=== PATIENT | female | born 1965 | race Two or more races ===

== ENCOUNTER 2017-10-28 11:27 | Emergency (ER) | payer SELFPAY ==
[2017-10-21 13:57] VITALS: BMI 33.6
[~2017-10-28 11:27] MED LIST: ACET-3017 PO; ALB17R INH; ALB6.7R INH; ALE70 PO; ALP5 PO; AMI10 PO; AMIT-106 PO; ATOR10TA24 PO; AZIT500T47 PO; BACDS PO; CALC-515 PO; CALC-778 PO; CALC1TAB32 PO; CEP500 PO; CEPH250C37 PO; CEPH500C24 PO; CEPH500T7 PO; CIP500 PO; CITA-139 PO; CITA-141 PO; CLI150 PO; CLIN-1 PO; CLIN-75 PO; CLIN150C15; CLIN300C99 PO; CYA1000 PO; CYAN500T38 PO; CYAN50TA3 PO; CYC10 PO; CYCL10TA29 PO; CYCL15CA18 PO; DAR100 PO; DOC100 PO; DOXY-179 PO; ESC10 PO; EZE10 PO; FISH OIL1 CAP PO; FLU150 PO; FLUT100D INH; GAB100 PO; GABA-547 PO; GEMF600T89 PO; GLY5 PO; HYDR-1 PO; HYDR-317 PO; HYDR-3250 PO; HYDR-385 PO; HYDR-4305 PO; HYDR-4309 PO; HYDR1TAB; HYDR20TA17 PO; IBAN2.5T2 PO; IBU800 PO; IBUP800T37 PO; INSU100C10 SQ; KET10; LACT10SO82 PO; LEVI SUBQ; LEVO50 PO; LEVO50TA89 PO; LEVO75TA73 PO; LOR5 PO; LOR5/325 PO; MECL-111 PO; MECL-205 PO; MECL-81 PO; MECL25TA27 PO; MECLAZINE; MELO-149 PO; MELO-205 PO; MET500 PO; METF-1 PO; METF-420 PO; MIR PO; MULT-1379 PO; NIC10R INH; NIT100 PO; OMEG-11 PO; OMEP-125 PO; ONDA4TAB PO; ONDA4TAB97 PO; OXYC5TAB38 PO; OXYG1EAC MC; PER PO; PHENA100 PO; PHENA200 PO; PRA20 PO; PRAV40TA77 PO; PRED20TA6 PO; PROM-110 PO; SIMV-49 PO; SIMV-54 PO; SPIR25TA78 PO; SPIR50TA31 PO; SULF-198 PO; TRAM-420 PO; VARE1TAB4 PO; VIT B 12 SC; [UNRECOGNIZED DRUG - CODE] PO; [UNRECOGNIZED DRUG - CODE] PO
--- NOTE | 2017-10-28 11:59 | EKG ---
FACILITY: [facility] - [place] PATIENT NAME: LEW TUCKER : [id number] MR: [id number] V: [id number] EXAM DATE: ORDERING PHYSICIAN: HOLLI BUSTAMANTE TECHNOLOGIST: SETH Omalley Reason : RESPIRATORY Blood Pressure : / mmHG Vent. Rate : 065 BPM Atrial Rate : 065 BPM P-R Int : 106 ms QRS Dur : 082 ms QT Int : 474 ms P-R-T Axes : -15 088 140 degrees QTc Int : 492 ms Sinus rhythm with short MT Low voltage QRS ST and T wave abnormality, consider lateral ischemia Prolonged QT Abnormal ECG When compared with ECG of 20-OCT-2017 12:37, No significant change was found Confirmed by JULIO REESE ([id number]) on 10/29/2017 1:26:22 AM Referred By: DIANNA Confirmed By:JULIO REESE
[2017-10-28 12:18] LABS: PLATELET COUNT, AUTOMATED 245 K/uL (150-450)
[2017-10-28 12:27] LABS: INR 1.17
--- NOTE | 2017-10-28 12:45 | RADIOLOGY IMAGING REPORT ---
FACILITY: [facility] - [place] PATIENT NAME: Gricelda Victor : 1965 MR: [id number] V: [id number] EXAM DATE: ORDERING PHYSICIAN: HOLLI BUSTAMANTE TECHNOLOGIST: Location: [facility] - [place] Patient: Gricelda Victor : 1965 Visit/Account:[id number] Date of Sevice: 10/28/2017 Examination: CHEST PA AND LAT Comparison: 10/22/2017 and earlier History: Respiratory distress. Findings: Increased size of the large right pleural effusion with associated right mid and lower lung volume loss versus consolidation. The left lung is clear. No pneumothorax. Visualized cardiac and le ft hilar contour is within normal limits. IMPRESSION: 1. Increased large right pleural effusion with associated right lung volume loss versus consolidation . 2. Clear left lung. Report Dictated By: Leonel Christianson MD at 10/28/2017 12:40 PM Report E-Signed By: Leonel Christianson MD at 10/28/2017 12:41 PM WSN:[id number]
--- NOTE | 2017-10-28 12:52 | ER Report ---
History and Physical Time Seen By MD: 11:30 Hx. of Stated Complaint: PATIENT STATES THAT IT HAS BEEN HARD TO BREATH SINCE THE October AND THAT TODAY HAS BEEN WORSE AND HARD TO BREATH HPI/ROS CHIEF COMPLAINT: Shortness of breath HISTORY OF PRESENT ILLNESS: She is a 52-year-old female who presents the ED with complaint of shortness of breath that started this morning. She states that she feels like her chest is being squeezed currently. Patient denies any fever cough. She states that she was recently hospitalized and was discharged on 10/22/2017. She states that she had her lung drained of fluid. She states that she did feel better but has been on oxygen since. She states that she is on 2-3 L of oxygen during the day and is on her CPAP machine at night. Patient states that she feels like she needs her CPAP during the day as well. She denies any palpitations. She has not noted any nausea or vomiting. She states that she is not having any abdominal pain. She recently was diagnosed with cirrhosis but to 3 months ago. She states that she is uncertain of what the underlying causes. She denies any alcohol use. REVIEW OF SYSTEMS: Constitutional: No fever, no chills. Eyes: No discharge. ENT: No sore throat. Cardiovascular: See history of present illness. Respiratory: See History of present illness. Gastrointestinal: See history of present illness. Genitourinary: No hematuria. Musculoskeletal: No back pain. Skin: No rashes. Neurological: No headache. Allergies: Coded Allergies: Penicillins (Verified Allergy, Intermediate, ITCHING, 10/20/17) levofloxacin (Verified Allergy, Intermediate, HIVES, 10/20/17) Home Meds Reported Medications Spironolactone (SPIRONOLACTONE) 25 Mg Tablet, 50 MG PO QDAY, TAB 10/20/17 Calcium Carb & Cit/Vitamin D3 (CALCIUM + D3 ER TABLET) 1 Each Tablet.er, 1 EACH PO QDAY 10/20/17 Cyanocobalamin (Vitamin B-12) (VITAMIN B-12) 1,000 Mcg Tablet, 1000 MCG PO QDAY 10/20/17 Insulin Detemir (LEVEMIR) 100 Unit/Ml Injs, 10 UNIT SUBQ QHS 09/15/17 Levothyroxine Sodium (LEVOTHYROXINE SODIUM) 75 Mcg Tablet, 75 MCG PO QDAY, TAB 12/27/15 Amitriptyline Hcl (AMITRIPTYLINE HCL) 25 Mg Tablet, 25 MG PO QHS, #5 TAB 05/23/15 Albuterol (Proventil Inhaler) 17 Gm Inh, 1 PUFF INH BID Y, 0 Refills 1-2 PUFFS 02/02/11 Discontinued Reported Medications Citalopram Hydrobromide (CITALOPRAM HBR) Unknown Strength Tablet, PO QDAY, TAB 09/15/17 Cyclobenzaprine Hcl (CYCLOBENZAPRINE HCL) 10 Mg Tablet, 10 MG PO TID Y for PAIN , TAB 09/15/17 Simvastatin (SIMVASTATIN) 20 Mg Tablet, 1 TAB PO HS, TAB 08/10/16 Discontinued Scripts Metformin Hcl (METFORMIN HCL) 1,000 Mg Tablet, 1 TAB PO BID, #60 TAB 5 Refills Prov:MONICA WASHBURN MD 09/15/17 Omeprazole (OMEPRAZOLE) 20 Mg Capsule.dr, 1 CAP PO QDAY, #30 CAP 6 Refills Prov:MONICA WASHBURN MD 09/15/17 Tramadol Hcl (TRAMADOL HCL) 50 Mg Tablet, 1-2 TAB PO Q4H Y for PAIN, #30 TAB 0 Refills Prov:OSCAR LAM MD 07/01/17 Reviewed Nurses Notes: Yes Old Medical Records Reviewed: Yes Hx Smoking: Yes (1 pack every 4-5 days 25 YRS) Smoking Status: Current: Every Day Smoker Exposure to Second Hand Smoke?: Yes Hx Substance Use Disorder: No Hx Alcohol Use: No Constitutional Vital Sign - Last 24 Hours 10/28/17 10/28/17 10/28/17 10/28/17 11:36 11:36 11:36 11:57 Temp 98.2 Pulse 65 63 Resp 17 B/P (MAP) 121/86 121/86 (98) Pulse Ox 94 92 O2 Delivery Nasal Cannula Nasal Cannula O2 Flow Rate 1.0 1 10/28/17 10/28/17 10/28/17 10/28/17 12:00 12:27 12:30 12:57 Pulse 65 63 Resp 18 21 B/P (MAP) 115/90 (98) 113/80 (91) Pulse Ox 93 96 O2 Delivery Nasal Cannula Nasal Cannula O2 Flow Rate 1 1 10/28/17 10/28/17 10/28/17 10/28/17 13:00 13:05 13:11 13:16 Pulse 64 62 Resp 25 11 B/P (MAP) 113/80 (91) 112/98 (103) Pulse Ox 95 O2 Delivery Nasal Cannula O2 Flow Rate 1 10/28/17 10/28/17 10/28/17 10/28/17 13:30 13:46 14:00 14:05 Pulse 66 67 Resp 22 18 B/P (MAP) 117/91 (100) 128/83 (98) Pulse Ox 93 93 O2 Delivery Nasal Cannula O2 Flow Rate 1 10/28/17 10/28/17 10/28/17 10/28/17 14:15 14:20 14:30 14:45 Pulse 67 Resp 27 B/P (MAP) 135/90 (105) 118/90 (99) 104/83 (90) Pulse Ox 91 10/28/17 10/28/17 14:55 15:00 Pulse 79 Resp 31 B/P (MAP) 110/75 (87) Pulse Ox 87 Physical Exam General Appearance: The patient is alert, has no immediate need for airway protection and no signs of toxicity. She appears to be in some mild distress. Eyes: Pupils equal and round no pallor or injection. ENT, Mouth: Mucous membranes are moist. Respiratory: There are no retractions. Decreased breath sounds on the right lung particularly in the base. Cardiovascular: Regular rate and rhythm. Gastrointestinal: Abdomen is soft and non tender, no masses, bowel sounds normal. Skin: Warm and dry, no rashes. Musculoskeletal: Neck is supple non tender. Extremities are nontender, nonswollen and have full range of motion. DIFFERENTIAL DIAGNOSIS: After history and physical exam differential diagnosis was considered for shortness of breath including but not limited to pulmonary infectious process, COPD, asthma, pulmonary embolus and congestive heart failure. Medical Decision Making Data Points Result Diagram: 10/28/17 1209 10/28/17 1209 Laboratory Hematology Test 10/28/17 12:09 Red Blood Count 4.90 M/uL (4.17-5.56) Mean Corpuscular Volume 89.3 fL (80.0-96.0) Mean Corpuscular Hemoglobin 30.2 pg (26.0-33.0) Mean Corpuscular Hemoglobin Concent 33.8 g/dL (32.0-36.0) Red Cell Distribution Width 13.9 % (11.5-14.5) Mean Platelet Volume 8.4 fL (7.2-11.1) Neutrophils (%) (Auto) 47.3 % (39.4-72.5) Lymphocytes (%) (Auto) 40.0 % (17.6-49.6) Monocytes (%) (Auto) 3.5 % (4.1-12.4) Eosinophils (%) (Auto) 8.7 % (0.4-6.7) Basophils (%) (Auto) 0.5 % (0.3-1.4) Nucleated RBC Relative Count (auto) 0.0 /100WBC Neutrophils # (Auto) 4.2 K/uL (2.0-7.4) Lymphocytes # (Auto) 3.5 K/uL (1.3-3.6) Monocytes # (Auto) 0.3 K/uL (0.3-1.0) Eosinophils # (Auto) 0.8 K/uL (0.0-0.5) Basophils # (Auto) 0.0 K/uL (0.0-0.1) Nucleated RBC Absolute Count (auto) 0.00 K/uL Peripheral Blood Smear No Y/N Prothrombin Time 15.0 seconds (12.0-14.4) Prothromb Time International Ratio 1.17 Activated Partial Thromboplast Time 41 seconds (23-35) Sodium Level 140 mmol/L (137-145) Potassium Level 3.9 mmol/L (3.5-5.0) Chloride Level 97 mmol/L (98-107) Carbon Dioxide Level 27 mmol/L (22-31) Blood Urea Nitrogen 12 mg/dl (7-18) Creatinine 1.10 mg/dl (0.52-1.04) Glomerular Filtration Rate Calc 52.4 Random Glucose 178 mg/dl (75-110) Calcium Level 9.9 mg/dl (8.4-10.2) Total Bilirubin 1.1 mg/dl (0.2-1.3) Aspartate Amino Transf (AST/SGOT) 71 U/L (0-35) Alanine Aminotransferase (ALT/SGPT) 75 U/L (0-56) Alkaline Phosphatase 156 U/L (0-126) Troponin I < 0.012 ng/ml B-Type Natriuretic Peptide 23 pg/ml (0-100) Total Protein 8.5 gm/dl (6.3-8.2) Albumin 4.5 g/dl (3.5-5.0) Chemistry Test 10/28/17 12:09 White Blood Count 8.8 k/uL (4.5-11.0) Red Blood Count 4.90 M/uL (4.17-5.56) Hemoglobin 14.8 g/dL (12.0-16.0) Hematocrit 43.8 % (34.0-47.0) Mean Corpuscular Volume 89.3 fL (80.0-96.0) Mean Corpuscular Hemoglobin 30.2 pg (26.0-33.0) Mean Corpuscular Hemoglobin Concent 33.8 g/dL (32.0-36.0) Red Cell Distribution Width 13.9 % (11.5-14.5) Platelet Count 245 K/uL (150-450) Mean Platelet Volume 8.4 fL (7.2-11.1) Neutrophils (%) (Auto) 47.3 % (39.4-72.5) Lymphocytes (%) (Auto) 40.0 % (17.6-49.6) Monocytes (%) (Auto) 3.5 % (4.1-12.4) Eosinophils (%) (Auto) 8.7 % (0.4-6.7) Basophils (%) (Auto) 0.5 % (0.3-1.4) Nucleated RBC Relative Count (auto) 0.0 /100WBC Neutrophils # (Auto) 4.2 K/uL (2.0-7.4) Lymphocytes # (Auto) 3.5 K/uL (1.3-3.6) Monocytes # (Auto) 0.3 K/uL (0.3-1.0) Eosinophils # (Auto) 0.8 K/uL (0.0-0.5) Basophils # (Auto) 0.0 K/uL (0.0-0.1) Nucleated RBC Absolute Count (auto) 0.00 K/uL Peripheral Blood Smear No Y/N Prothrombin Time 15.0 seconds (12.0-14.4) Prothromb Time International Ratio 1.17 Activated Partial Thromboplast Time 41 seconds (23-35) Glomerular Filtration Rate Calc 52.4 Calcium Level 9.9 mg/dl (8.4-10.2) Total Bilirubin 1.1 mg/dl (0.2-1.3) Aspartate Amino Transf (AST/SGOT) 71 U/L (0-35) Alanine Aminotransferase (ALT/SGPT) 75 U/L (0-56) Alkaline Phosphatase 156 U/L (0-126) Troponin I < 0.012 ng/ml B-Type Natriuretic Peptide 23 pg/ml (0-100) Total Protein 8.5 gm/dl (6.3-8.2) Albumin 4.5 g/dl (3.5-5.0) Coagulation Test 10/28/17 12:09 Prothrombin Time 15.0 seconds Prothromb Time International Ratio 1.17 Activated Partial Thromboplast Time 41 seconds EKG/Imaging EKG Interpretation 12 lead EKG: Rhythm: Normal sinus rhythm, rate [address] segments: No acute ST changes identified. There is some T-wave depression noted in V2 V3 V4 and V5, but this appears to be similar to her previous EKG on 10/21/2017 Monitor Interpretation: Normal Sinus Rhythm Imaging CXR: IMPRESSION: 1. Increased large right pleural effusion with associated right lung volume loss versus consolidation. 2. Clear left lung. Report Dictated By: Leonel Christianson MD at 10/28/2017 12:40 PM Report E-Signed By: Leonel Christianson MD at 10/28/2017 12:41 PM ED Course/Re-evaluation ED Course Will obtain labs and chest x-ray. 10/28/2017 12:57:08 pm - discussed patient with Dr. Julio, hospitalist, who advises to discussed patient with surgery given her recurrent large right pleural effusion that may need more procedures completed. 10/28/2017 2:09:01 pm - discussed patient with Dr. Clark, surgeon, will complete thoracentesis in the emergency room and will talk with hospitalist about admission. Discussed this with patient and she is couple with this plan. 10/28/2017 3:40:51 pm - Dr. Clark did complete thoracentesis in the emergency department. Post procedure chest x-ray reveals reduction and pleural effusion with no pneumothorax identified. He advises to have patient follow up with her primary care provider for further workup of her pleural effusion in cirrhosis. Decision to Disposition Date: Oct 28, 2017 Decision to Disposition Time: 15:39 Depart Departure Latest Vital Signs Vital Signs Date Time Temp Pulse Resp B/P (MAP) Pulse Ox O2 Delivery O2 Flow Rate FiO2 10/28/17 15:00 110/75 (87) 10/28/17 14:55 79 31 87 10/28/17 13:46 Nasal Cannula 1 10/28/17 11:36 98.2 Impression: Primary Impression: Recurrent right pleural effusion Condition: Improved Disposition: HOME OR SELF-CARE Patient Instructions: Pleural Effusion (ED) Additional Instructions: Continue her home oxygen therapy. Follow-up with her primary care provider in 2- 3 days. If having any worsening or concerning symptoms. Return to the emergency department. WARPER CREELER/PA consult with MD: Verbally MD Consult Note: Dr. Clark, Surgery Dr. Julio, Hospitalist HOLLI BUSTAMANTE PA-C Oct 28, 2017 12:52
[2017-10-28] MEDS ORDERED: LORazepam 2 MG/ML VIAL IVP ONE (13:55)
--- NOTE | 2017-10-28 15:19 | RADIOLOGY IMAGING REPORT ---
FACILITY: [facility] [place] PATIENT NAME: Gricelda Victor : 1965 MR: [id number] V: [id number] EXAM DATE: ORDERING PHYSICIAN: LUZ ELENA BURROUGHS TECHNOLOGIST: Location: [facility] - [place] Patient: Gricelda Victor : 1965 Visit/Account:[id number] Date of Sevice: 10/28/2017 Single view of the chest Indication: Large right pleural effusion.. Comparison: X-ray chest from earlier today. Findings: Compared prior exam, significant reduction in the large right pleural effusion with only a small serena ining amount of fluid within the right base. Interstitial coarsening is noted in the right perihilar region extending to the right lower lobe which may represent interstitial edematous changes. IMPRESSION: 1. Significant improvement in the large right pleural effusion with only a trace amount of pleural fl uid remaining. No pneumothorax. Linear coarsening of the interstitium within the right base which m ay be interstitial edematous change. Report Dictated By: Chas Pratt MD at 10/28/2017 3:12 PM Report E-Signed By: Chas Pratt MD at 10/28/2017 3:14 PM [id number]
--- NOTE | 2017-10-28 15:34 | Procedure Note ---
Thoracentesis Procedure Note Consent Signed: Yes Thoracentesis Location: Right Lung U/S Guided Thoracentesis: No Blood Loss: Minimal Complications: None Anesthesia Used: Other (0.5% Sensorcaine) CC's of Anesthesia: 10 Amount of Fluid: 2700 Fluid Characteristics: Serous Post Procedure Xray Ordered: Yes (Near complete expansion, no pneumothorax) Lab Analysis Ordered: No Comment I used the previous drainage site from last week that was localized via US. Lab tests were not sent since this was completed last week and the purpose of the thoracentesis today was therapeutic only. LUZ ELENA BURROUGHS MD Oct 28, 2017 15:34
--- NOTE | 2017-10-28 15:44 | General Surgery Consultation ---
History of Present Illness Requesting Physician Emergency Department Reason for Consult Recurrent Right Pleural Effusion Chief Complaint Dyspnea History of Present Illness Ms. Victor is a 52yo female who presents with dyspnea and an xray that demonstrates a large right pleural effusion. This is recurrent following her thoracentesis on the . It is believed that she has CHNI but is waiting to obtain Medicaid coverage so she can be seen by a specialist in [place] or [place]. I was asked to evaluate her today for her acute dyspnea due to her recurrent effusion. History Home Meds Reported Medications Spironolactone (SPIRONOLACTONE) 25 Mg Tablet, 50 MG PO QDAY, TAB 10/20/17 Calcium Carb & Cit/Vitamin D3 (CALCIUM + D3 ER TABLET) 1 Each Tablet.er, 1 EACH PO QDAY 10/20/17 Cyanocobalamin (Vitamin B-12) (VITAMIN B-12) 1,000 Mcg Tablet, 1000 MCG PO QDAY 10/20/17 Insulin Detemir (LEVEMIR) 100 Unit/Ml Injs, 10 UNIT SUBQ QHS 09/15/17 Levothyroxine Sodium (LEVOTHYROXINE SODIUM) 75 Mcg Tablet, 75 MCG PO QDAY, TAB 12/27/15 Amitriptyline Hcl (AMITRIPTYLINE HCL) 25 Mg Tablet, 25 MG PO QHS, #5 TAB 05/23/15 Albuterol (Proventil Inhaler) 17 Gm Inh, 1 PUFF INH BID Y, 0 Refills 1-2 PUFFS 02/02/11 Discontinued Reported Medications Citalopram Hydrobromide (CITALOPRAM HBR) Unknown Strength Tablet, PO QDAY, TAB 09/15/17 Cyclobenzaprine Hcl (CYCLOBENZAPRINE HCL) 10 Mg Tablet, 10 MG PO TID Y for PAIN , TAB 09/15/17 Simvastatin (SIMVASTATIN) 20 Mg Tablet, 1 TAB PO HS, TAB 08/10/16 Discontinued Scripts Metformin Hcl (METFORMIN HCL) 1,000 Mg Tablet, 1 TAB PO BID, #60 TAB 5 Refills Prov:MONICA WASHBURN MD 09/15/17 Omeprazole (OMEPRAZOLE) 20 Mg Capsule.dr, 1 CAP PO QDAY, #30 CAP 6 Refills Prov:MONICA WASHBURN MD 09/15/17 Tramadol Hcl (TRAMADOL HCL) 50 Mg Tablet, 1-2 TAB PO Q4H Y for PAIN, #30 TAB 0 Refills Prov:OSCAR LAM MD 07/01/17 Allergies: Coded Allergies: Penicillins (Verified Allergy, Intermediate, ITCHING, 10/20/17) levofloxacin (Verified Allergy, Intermediate, HIVES, 10/20/17) Family History: FH: breast cancer Siblings x3 Review of Systems All Systems Reviewed/Normal: Yes, Except as Noted Constitutional: No Fever, No Chills, No Night Sweats Respiratory: Shortness of Breath Exam Vital Signs Vital Signs Date Time Temp Pulse Resp B/P (MAP) Pulse Ox O2 Delivery O2 Flow Rate FiO2 10/28/17 15:00 110/75 (87) 10/28/17 14:55 79 31 87 10/28/17 13:46 Nasal Cannula 1 10/28/17 11:36 98.2 General Appearance: Alert, Awake Neuro: No Gross deficits Eyes: PERRLA ENT: Normal Neck: No Masses Cardiovascular: Normal Rhythm & Peripheral Pulses Respiratory: Other (absent breath sounds on right, extra work of breathing) GI: Abd Soft and Non-Tender Musculoskeletal: No Weakness/Pain Extremities: Soft and Non Tender Medical Decision Making Data Points Result Diagram: 10/28/17 1209 10/28/17 1209 Assessment and Plan Problems: (1) Recurrent right pleural effusion Status: Acute Assessment & Plan: I discussed the findings and care with the patient, her daughter, her PCP and Dr. Lam who performed her last thoracentesis. All are in agreement to proceed with a therapeutic thoracentesis today as a temporizing measure. She will follow-up with her PCP on 11/02 to start Lasix in an attempt to continue to manage her fluid status medically. She has submitted her Medicaid application and is waiting for confirmation in order to schedule an appointment with [place] or [facility] GI[facility]Hepatology. She is aware that she will likely require a thoracentesis again in the near future. She is not a short-term candidate for a pleurodesis at this time. Following her thoracentesis, she is to be discharged home from the ED with follow-up plan as above. Time Spent: > 30 min Venous Thromboembolism VTE Risk Physician Assess for VTE Risk: Yes Patient's VTE Risk: Low VTE Diagnostic Test 2 Days Prior to Admit: No Antithrombotics Is Pt On Any Antithrombotics?: No HEIKE,LUZ ELENA C MD Oct 28, 2017 15:44
[2017-10-28 15:45] VITALS: BP 113/84
[2017-11-02] MEDS ORDERED: CITA-141 PO (09:12)
[2017-11-02] MEDS ORDERED: LEVI SUBQ (09:12)
[2017-11-02] MEDS ORDERED: OMEP-137 PO (09:12)
[2017-11-02] MEDS ORDERED: SPIR25TA78 PO (09:12)
[2017-11-02] MEDS ORDERED: LEVO75TA73 PO (09:12)
[2017-11-02] MEDS ORDERED: ALBU8.5H IH (09:16)
== END 2017-10-28 15:52 | disposition home or self-care (01) ==
LOC: ER 11:28
DX: J90 Pleural effusion, not elsewhere classified (principal)
CPT/HCPCS: 32554; 71010; 71020; 83880; 84484; 85025; 85610; 85730; 93005; 96374; 99284; A7048; J2060; 82040; 82247; 82310; 82374; 82435; 82565; 82947; 84075; 84132; 84155; 84295; 84450; 84460; 84520

== ENCOUNTER 2017-10-31 09:40 | Emergency (ER) | payer SELFPAY ==
[2017-10-21 13:57] VITALS: Wt 81.6 kg
--- NOTE | 2017-10-31 09:46 | ER Report ---
History and Physical Time Seen By MD: 09:45 HPI/ROS CC: Rash HPI: 52-year-old female with a past medical history diabetes mellitus, nonspecific rash, dental abscess, noncompliance with last hemoglobin A1c of 8.2, dysthymia, cirrhosis, cholelithiasis, depression, elevated CA-125, hyperlipidemia. Presents to the emergency Department per POV. 3 day history of rash/hives over her chest abdomen and groin. She is on dialysis any new contact with soaps, foods, animal's, any other substance. It is puritic in nature. She is using topical cortisone and Benadryl without relief. Apparently her PCP has taken her off all medication including insulin. This is according to the patient. I discussed with her the difficulty of placing her on steroids with her diabetes. She distally is a noncompliant patient and she admits that. ROS: 12 point review of systems essentially negative other than what's mentioned in history of present illness. NURSES AND OLD MEDICAL RECORDS: Reviewed PMH: Reviewed SURGICAL HX: Reviewed FAMILY HX: Noncontributory SOCIAL HX: She denies illicit drugs and alcohol. VITAL SIGNS: Reviewed CONSTITUTIONAL: 52-year-old female in minimal distress. PHYSICAL EXAM: HEENT: Pupils equal round reactive to light and accommodate, EOMI, tympanic membranes pearly white umbo present with good light reflex. Lips dry mucous membranes moist gums nonbleeding uvula midline and rises equally with phonation, oropharynx noninjected, teeth intact. NECK: Neck supple, thyroid not appreciated, anterior and posterior cervical lymphadenopathy not appreciated. Trachea midline and rises equally with phonation. CARDIAC: S1-S2 regular rate rhythm no murmurs rubs or gallops. LUNGS: Lungs clear bilaterally posteriorly in all godfrey. Good air movement. ABDOMEN: Abdomen soft, nondistended, bowel sounds active in all 4 quadrants, no bruits noted, no CVA tenderness. MUSCULOSKELETAL: Strength 5 out of 5 x 4 extremities, no deformities noted. SKIN: Hives as above in history of present illness. NEUROLOGIC: Patient alert and oriented by 3 Allergies: Coded Allergies: Penicillins (Verified Allergy, Intermediate, ITCHING, 10/20/17) levofloxacin (Verified Allergy, Intermediate, HIVES, 10/20/17) Home Meds Reported Medications Albuterol (Proventil Inhaler) 17 Gm Inh, 1 PUFF INH BID Y, 0 Refills 1-2 PUFFS 02/02/11 Discontinued Reported Medications Spironolactone (SPIRONOLACTONE) 25 Mg Tablet, 50 MG PO QDAY, TAB 10/20/17 Calcium Carb & Cit/Vitamin D3 (CALCIUM + D3 ER TABLET) 1 Each Tablet.er, 1 EACH PO QDAY 10/20/17 Cyanocobalamin (Vitamin B-12) (VITAMIN B-12) 1,000 Mcg Tablet, 1000 MCG PO QDAY 10/20/17 Insulin Detemir (LEVEMIR) 100 Unit/Ml Injs, 10 UNIT SUBQ QHS 09/15/17 Levothyroxine Sodium (LEVOTHYROXINE SODIUM) 75 Mcg Tablet, 75 MCG PO QDAY, TAB 12/27/15 Amitriptyline Hcl (AMITRIPTYLINE HCL) 25 Mg Tablet, 25 MG PO QHS, #5 TAB 05/23/15 Hx Smoking: Yes (1 pack every 4-5 days 25 YRS) Smoking Status: Current: Every Day Smoker Exposure to Second Hand Smoke?: Yes Hx Substance Use Disorder: No Hx Alcohol Use: No Constitutional Vital Sign - Last 24 Hours 10/31/17 09:47 Temp 98.3 Pulse 70 Resp 18 B/P (MAP) 105/83 Pulse Ox 91 O2 Delivery Room Air Medical Decision Making Data Points Laboratory Hematology Test 10/31/17 10:05 Whole Blood Glucose 181 mg/DL (75-110) Chemistry Test 10/31/17 10:05 Whole Blood Glucose 181 mg/DL (75-110) ED Course/Re-evaluation ED Course Patient was given Decadron in the emergency Department 10 milligrams by mouth. Because of her diabetes she will be placed on triamcinolone. Follow up with her PCP. Patient of plan and in agreement. Re-evaluation Contact dermatitis medical decision-making decision Decision to Disposition Date: Oct 31, 2017 Decision to Disposition Time: 10:34 Depart Departure Latest Vital Signs Vital Signs Date Time Temp Pulse Resp B/P (MAP) Pulse Ox O2 Delivery O2 Flow Rate FiO2 10/31/17 09:47 98.3 70 18 105/83 91 Room Air Impression: Primary Impression: Contact dermatitis Condition: Condition Unchanged Disposition: HOME OR SELF-CARE New Scripts Triamcinolone Acetonide 0.1% Cr 15 Gm Tube (TRIAMCINOLONE ACETONIDE 0.1% CREAM) 15 Gm Cream..g. 15 GM TP BID, #1 TUBE 3 Refills Prov: NANETTE SEQUEIRA MD 10/31/17 Patient Instructions: Contact Dermatitis (ED) Additional Instructions: Been given triamcinolone applied to skin as directed. Follow-up with regular doctor on Wednesday. Problem Qualifiers Primary Impression: Contact dermatitis Contact dermatitis type: allergic Contact dermatitis trigger: unspecified trigger Qualified Codes: L23.9 - Allergic contact dermatitis, unspecified cause NANETTE SEQUEIRA MD Oct 31, 2017 09:46
[2017-10-31] MEDS ORDERED: DEXAMETHASONE SOD PHOS 10MG/ML PO ONE (10:20)
[2017-10-31] MEDS ORDERED: TRIA15CR40 TP (10:37)
[2017-10-31 10:43] VITALS: BP 104/75
[2017-11-02] MEDS ORDERED: LEVO75TA73 PO (09:12)
[2017-11-02] MEDS ORDERED: SPIR25TA78 PO (09:12)
[2017-11-02] MEDS ORDERED: LEVI SUBQ (09:12)
[2017-11-02] MEDS ORDERED: CITA-141 PO (09:12)
[2017-11-02] MEDS ORDERED: OMEP-137 PO (09:12)
[2017-11-02] MEDS ORDERED: ALBU8.5H IH (09:16)
== END 2017-10-31 10:42 | disposition home or self-care (01) ==
LOC: ER 09:47
DX: L23.9 Allergic contact dermatitis, unspecified cause (principal); E11.9 Type 2 diabetes mellitus without complications
CPT/HCPCS: 36416; 82948; 99283; J1100

== ENCOUNTER 2017-11-07 11:43 | Emergency (ER) | payer SELFPAY ==
[2017-10-21 13:57] VITALS: Ht 157.5 cm; Wt 79.4 kg
[~2017-11-07] VITALS: Ht 157.5 cm; Wt 79.4 kg
[~2017-11-07 11:43] MED LIST changes: +ALBU8.5H IH; +OMEP-137 PO; +TRIA15CR40 TP
--- NOTE | 2017-11-07 11:45 | ER Report ---
History and Physical Time Seen By MD: 11:44 HPI/ROS CC: Shortness of breath HPI: 52 year old female, with a past medical history of pleural effusion most recent being 10/28/2017 when , surgeon did a thoracentesis with extraction of 2700 ml's service in nature, cirrhosis, type II diabetes mellitus, depression. The last 24-48 hours patient has increased frankly become more short of breath. She denies a productive cough. She denies any chest pain or chest pressure, palpitations, diaphoresis, nausea vomiting. She is tachypneic and talking in 2-3 word sentences upon arrival to the emergency department. There are no alleviating factors. Historically she has had a paracentesis, liver biopsy and multiple CT scans. Her previous workup included hepatitis studies which were negative. Negative CHEN. Liver biopsy showed benign liver parenchyma with early cirrhosis and mild parenchymal steatosis and bile ductal proliferation with accompanying neutrophils and eosinophils. No active hepatitis , granulomas, or significantly increased iron or malignant features identified. Patient has had an elevated CA 125, but there is no evidence of malignancy on the pathology of her peritoneal fluid. Echocardiogram for possible CHF or pulmonary hypertension was completed. Her heart is essentially normal. She denies alcohol other than on a rare occasion. She does not use Tylenol on a regular basis. Dr. Baez had talked with [facility] hepatology and there conclusion is that she most likely fits the picture of CHIN. The recommendation is that she is to follow-up with [facility] but they will not take her because she is uninsured. GI specialist in [place] will see and uninsured patient was $150 down payment. Patient's Medicaid application is pending. ROS: 12 point review of systems essentially negative other than what's mentioned in history of present illness. NURSES AND OLD MEDICAL RECORDS: Reviewed PMH: Reviewed SURGICAL HX: Reviewed FAMILY HX: Noncontributory SOCIAL HX: Denies alcohol smoking and illicit drugs. She was at home. VITAL SIGNS: Reviewed CONSTITUTIONAL: 51-year-old female in moderate to moderately severe distress. PHYSICAL EXAM: HEENT: Pupils equal round reactive to light and accommodate, EOMI, tympanic membranes pearly white umbo present with good light reflex. Lips dry mucous membranes moist gums nonbleeding uvula midline and rises equally with phonation, oropharynx noninjected, teeth intact. NECK: Neck supple, thyroid not appreciated, anterior and posterior cervical lymphadenopathy not appreciated. Trachea midline and rises equally with phonation. CARDIAC: S1-S2 regular rate rhythm no murmurs rubs or gallops. LUNGS: Lungs decreased air movement posteriorly in right lower and right middle lung with expiratory wheeze. ABDOMEN: Abdomen soft, nondistended, bowel sounds active in all 4 quadrants, no bruits noted, no CVA tenderness. MUSCULOSKELETAL: Strength 5 out of 5 x 4 extremities, no deformities noted. NEUROLOGIC: Patient alert and oriented by 3 Allergies: Coded Allergies: Penicillins (Verified Allergy, Intermediate, ITCHING, 11/07/17) levofloxacin (Verified Allergy, Intermediate, HIVES, 11/07/17) Home Meds Active Scripts Triamcinolone Acetonide 0.1% Cr 15 Gm Tube (TRIAMCINOLONE ACETONIDE 0.1% CREAM) 15 Gm Cream..g., 15 GM TP BID, #1 TUBE 3 Refills Prov:NANETTE SEQUEIRA MD 10/31/17 Reported Medications Albuterol Sulfate 90 Mcg/Act (PROAIR HFA 90 MCG/ACT) 8.5 Gm Hfa.aer.ad, 2 PUFF IH Q4-6H, INHALER 11/02/17 Citalopram Hydrobromide (CITALOPRAM HBR) 40 Mg Tablet, 40 MG PO QDAY, TAB 11/02/17 Omeprazole (OMEPRAZOLE) 20 Mg Tablet.dr, 20 MG PO QDAY, TAB 11/02/17 Levothyroxine Sodium (LEVOTHYROXINE SODIUM) 75 Mcg Tablet, 75 MCG PO QDAY, TAB 11/02/17 Insulin Detemir (LEVEMIR) 100 Unit/Ml Injs, 10 UNIT SUBQ QHS 11/02/17 Spironolactone (SPIRONOLACTONE) 25 Mg Tablet, 50 MG PO QDAY, TAB 11/02/17 Discontinued Reported Medications Albuterol (Proventil Inhaler) 17 Gm Inh, 1 PUFF INH BID Y, 0 Refills 1-2 PUFFS 02/02/11 Calcium Carb & Cit/Vitamin D3 (CALCIUM + D3 ER TABLET) 1 Each Tablet.er, 1 EACH PO QDAY 10/20/17 Cyanocobalamin (Vitamin B-12) (VITAMIN B-12) 1,000 Mcg Tablet, 1000 MCG PO QDAY 10/20/17 Amitriptyline Hcl (AMITRIPTYLINE HCL) 25 Mg Tablet, 25 MG PO QHS, #5 TAB 05/23/15 Hx Smoking: Yes (1 pack every 4-5 days 25 YRS) Smoking Status: Current: Every Day Smoker Exposure to Second Hand Smoke?: Yes Hx Substance Use Disorder: No Hx Alcohol Use: No Constitutional Vital Sign - Last 24 Hours 11/07/17 11/07/17 11/07/17 11/07/17 11:46 11:47 11:48 11:58 Temp 97.8 Pulse 61 58 59 Resp 28 20 21 B/P (MAP) 137/107 (117) 137/107 Pulse Ox 90 91 94 O2 Delivery Room Air 11/07/17 11/07/17 11/07/17 11/07/17 12:00 12:03 12:06 12:06 Pulse 57 56 Resp 16 17 B/P (MAP) 124/94 (104) Pulse Ox 93 98 O2 Delivery Room Air FiO2 21.0 11/07/17 11/07/17 11/07/17 11/07/17 12:08 12:13 12:18 12:23 Pulse 57 66 57 55 Resp 26 24 23 27 Pulse Ox 99 94 93 93 11/07/17 11/07/17 11/07/17 11/07/17 12:28 12:30 12:43 12:48 Pulse 56 56 55 Resp 16 25 B/P (MAP) 113/73 (86) Pulse Ox 91 90 89 11/07/17 11/07/17 11/07/17 11/07/17 12:53 12:58 13:00 13:03 Pulse 58 56 60 Resp 32 21 19 B/P (MAP) 103/64 (77) Pulse Ox 90 92 92 11/07/17 11/07/17 11/07/17 11/07/17 13:08 13:13 13:18 13:23 Pulse 57 57 56 Pulse Ox 91 94 11/07/17 11/07/17 11/07/17 11/07/17 13:28 13:30 13:33 13:38 Pulse 59 60 B/P (MAP) 115/79 (91) Pulse Ox 94 93 93 Medical Decision Making Data Points Result Diagram: 11/07/17 1201 11/07/17 1201 Laboratory Hematology Test 11/07/17 12:01 Red Blood Count 5.19 M/uL (4.17-5.56) Mean Corpuscular Volume 88.9 fL (80.0-96.0) Mean Corpuscular Hemoglobin 30.1 pg (26.0-33.0) Mean Corpuscular Hemoglobin Concent 33.9 g/dL (32.0-36.0) Red Cell Distribution Width 14.5 % (11.5-14.5) Mean Platelet Volume 8.6 fL (7.2-11.1) Neutrophils (%) (Auto) 48.7 % (39.4-72.5) Lymphocytes (%) (Auto) 38.3 % (17.6-49.6) Monocytes (%) (Auto) 4.1 % (4.1-12.4) Eosinophils (%) (Auto) 6.8 % (0.4-6.7) Basophils (%) (Auto) 2.1 % (0.3-1.4) Nucleated RBC Relative Count (auto) 0.0 /100WBC Neutrophils # (Auto) 5.7 K/uL (2.0-7.4) Lymphocytes # (Auto) 4.5 K/uL (1.3-3.6) Monocytes # (Auto) 0.5 K/uL (0.3-1.0) Eosinophils # (Auto) 0.8 K/uL (0.0-0.5) Basophils # (Auto) 0.2 K/uL (0.0-0.1) Nucleated RBC Absolute Count (auto) 0.01 K/uL Sodium Level 136 mmol/L (137-145) Potassium Level 4.1 mmol/L (3.5-5.0) Chloride Level 100 mmol/L (98-107) Carbon Dioxide Level 24 mmol/L (22-31) Blood Urea Nitrogen 19 mg/dl (7-18) Creatinine 1.20 mg/dl (0.52-1.04) Glomerular Filtration Rate Calc 47.4 Random Glucose 169 mg/dl (75-110) Calcium Level 9.1 mg/dl (8.4-10.2) Total Bilirubin 0.8 mg/dl (0.2-1.3) Aspartate Amino Transf (AST/SGOT) 123 U/L (0-35) Alanine Aminotransferase (ALT/SGPT) 152 U/L (0-56) Alkaline Phosphatase 180 U/L (0-126) Troponin I < 0.012 ng/ml B-Type Natriuretic Peptide 27 pg/ml (0-100) Total Protein 8.1 gm/dl (6.3-8.2) Albumin 4.4 g/dl (3.5-5.0) Human Chorionic Gonadotropin, Qual Negative (NEGATIVE) Chemistry Test 11/07/17 12:01 White Blood Count 11.6 k/uL (4.5-11.0) Red Blood Count 5.19 M/uL (4.17-5.56) Hemoglobin 15.7 g/dL (12.0-16.0) Hematocrit 46.2 % (34.0-47.0) Mean Corpuscular Volume 88.9 fL (80.0-96.0) Mean Corpuscular Hemoglobin 30.1 pg (26.0-33.0) Mean Corpuscular Hemoglobin Concent 33.9 g/dL (32.0-36.0) Red Cell Distribution Width 14.5 % (11.5-14.5) Platelet Count 242 K/uL (150-450) Mean Platelet Volume 8.6 fL (7.2-11.1) Neutrophils (%) (Auto) 48.7 % (39.4-72.5) Lymphocytes (%) (Auto) 38.3 % (17.6-49.6) Monocytes (%) (Auto) 4.1 % (4.1-12.4) Eosinophils (%) (Auto) 6.8 % (0.4-6.7) Basophils (%) (Auto) 2.1 % (0.3-1.4) Nucleated RBC Relative Count (auto) 0.0 /100WBC Neutrophils # (Auto) 5.7 K/uL (2.0-7.4) Lymphocytes # (Auto) 4.5 K/uL (1.3-3.6) Monocytes # (Auto) 0.5 K/uL (0.3-1.0) Eosinophils # (Auto) 0.8 K/uL (0.0-0.5) Basophils # (Auto) 0.2 K/uL (0.0-0.1) Nucleated RBC Absolute Count (auto) 0.01 K/uL Glomerular Filtration Rate Calc 47.4 Calcium Level 9.1 mg/dl (8.4-10.2) Total Bilirubin 0.8 mg/dl (0.2-1.3) Aspartate Amino Transf (AST/SGOT) 123 U/L (0-35) Alanine Aminotransferase (ALT/SGPT) 152 U/L (0-56) Alkaline Phosphatase 180 U/L (0-126) Troponin I < 0.012 ng/ml B-Type Natriuretic Peptide 27 pg/ml (0-100) Total Protein 8.1 gm/dl (6.3-8.2) Albumin 4.4 g/dl (3.5-5.0) Human Chorionic Gonadotropin, Qual Negative (NEGATIVE) EKG/Imaging EKG Interpretation Sinus bradycardia, possible anterior lateral infarct age indeterminate, prolonged QT, ventricular rate 50 bpm, CA interval 120 ms, QRS duration 84 ms, QT 516 ms, QTC 506 ms. No change from previous ECG on 10/28/2017. Imaging CHEST X-RAY: IMPRESSION: 1. Reaccumulation of the right pleural effusion which is now at least moderate with associated atelectasis. Chest x-ray after thoracentesis No pneumothorax. ED Course/Re-evaluation ED Course Dr. Jarrett received report of patient and past hx of pleural effusions. Dr. Jarrett here and drained pleural effusion please see her note. I discussed the patient with Dr. Baez as he has taken care of her in the past. It is felt she can be discharged to home and follow up Dr. Tomas. Re-evaluation Medical decision making recurrent Pleural effusions. Decision to Disposition Date: Nov 07, 2017 Decision to Disposition Time: 13:46 Depart Departure Latest Vital Signs Vital Signs Date Time Temp Pulse Resp B/P (MAP) Pulse Ox O2 Delivery O2 Flow Rate FiO2 11/07/17 13:38 60 93 11/07/17 13:30 115/79 (91) 11/07/17 13:03 19 11/07/17 12:06 Room Air 21.0 11/07/17 11:47 97.8 Impression: Primary Impression: Pleural effusion Condition: Improved Disposition: HOME OR SELF-CARE Referrals: MONICA TOMAS MD 1 Day Call for an appointment tomorrow morning. Patient Instructions: Pleural Effusion (ED) Additional Instructions: Follow-up with Dr. Tomas. Return to the emergency department if you have any further concerns. I and the staff wanted to thank you for allowing us to take care of your needs today in the emergency department at [facility]. We have tried to answer all of your questions and concerns. Please feel free to return to the emergency department for any further concerns or unanswered questions. NANETTE SEQUEIRA MD Nov 07, 2017 11:45
[2017-11-07] MEDS ORDERED: ALBUTEROL/IPRATROPIUM 3 ML NEB NEB ONE (12:00)
[2017-11-07 12:18] LABS: PLATELET COUNT, AUTOMATED 242 K/uL (150-450)
--- NOTE | 2017-11-07 12:27 | EKG ---
FACILITY: [facility] [place] PATIENT NAME: LEW TUCKER : [id number] MR: [id number] V: [id number] EXAM DATE: ORDERING PHYSICIAN: NANETTE SEQUEIRA TECHNOLOGIST: Hemanth Omalley Reason : Blood Pressure : / mmHG Vent. Rate : 058 BPM Atrial Rate : 058 BPM P-R Int : 128 ms QRS Dur : 084 ms QT Int : 516 ms P-R-T Axes : 016 083 162 degrees QTc Int : 506 ms Sinus bradycardia Diffuse T wave abnormalities Possible Anterolateral infarct Prolonged QT Abnormal ECG Confirmed by AIMEE VENCES ([id number]) on 11/08/2017 6:03:32 AM Referred By: Confirmed By:AIMEE VENCES
--- NOTE | 2017-11-07 13:09 | RADIOLOGY IMAGING REPORT ---
[place] [facility] [place] Gricelda Victor : 1965 MR: [id number] V: [id number] EXAM DATE: ORDERING PHYSICIAN: NANETTE SEQUEIRA TECHNOLOGIST: Location: [facility] Patient: Gricelda Victor : 1965 Visit/Account:[id number] Date of Sevice: 11/07/2017 2 VIEWS CHEST INDICATION: Chest pain respiratory distress. COMPARISON: 10/20/2017. FINDINGS: Cardiomediastinal silhouette and pulmonary vessels within normal limits. There is no focal infiltrate or lobar consolidation. There is been reaccumulation right pleural fluid which is now moderate. Associated atelectasis. The r ight upper lobe is clear. No indication of left effusion or pneumothorax. No nodule. Upper abdomen is unremarkable. No acute bony abnormality. IMPRESSION: 1. Reaccumulation of the right pleural effusion which is now at least moderate with associated atelec tasis. Report Dictated By: Colten Recinos at 11/07/2017 1:05 PM Report E-Signed By: Colten Recinos at 11/07/2017 1:06 PM WSN:[id number]
[2017-11-07 14:00] VITALS: BP 125/84
--- NOTE | 2017-11-07 14:06 | ER Inpatient Procedure ---
Inpatient Procedure PROCEDURE NOTE: Preoprocedure diagnosis: Recurrent (R) pleural effusion Post procedure diagnosis: Recurrent (R) pleural effusion Procedure: (R) pleurocentesis. Surgeon: Sadie Sanchez MD Anesthesia: Local Indications: This 52 year old female presents with recurrence of a (R) pleural effusion which was drained 10/28/[address] Clark with good relief of symptoms. She was diagnosed in June with liver disease which has been progressive. The patient's INR on 10/28 was 1.4, she is not on anticoagulants and she has no allergies to local anesthesia. Informed consent is obtained for the procedure, including discussion of the risk of pneumothorax and the probability that this will recur. The patient agrees and will proceed. Procedure: The patient is met in the ED. CXR is reviewed and reveals a right pleural effusion, similar in appearance to the CXR prior to pleuracentesis on . She is on the monitor. Positioning is upright over a bedside table. Prep of the area is performed using chlorhexidine. Sterile gloves as well as mask and gown are donned. The area is sterilely draped. Local anesthesia of 1% lidocaine was used to create a skin wheal and carried down through the skin and subcutaneous tissues at about the 7th ICS. The pleuracentesis catheter is inserted into the chest cavity with immediate return of serous fluid. 1350mL of clear serous fluid was evacuated from the chest without difficulty. The catheter was removed from the patient's chest and the area cleaned again with chlorhexidine. A bandaid was applied to this area. The patient stated she is breathing better but reports pain locally throughout the procedure. Pulse oximetry improved from 90% at the start of the procedure to 94-95% at the termination of the procedure. Post procedure CXR has been obtained - Improvement in the pleural effusion which is loculated and no pneumothorax. Reviewed with Dr. Rushing at [facility] in real time. The patient is discharged with instructions to follow up with her primary care provider. SARA SANCHEZ MD Nov 07, 2017 14:06
--- NOTE | 2017-11-07 14:12 | RADIOLOGY IMAGING REPORT ---
FACILITY: PATIENT NAME: Gricelda Victor : 1965 MR: [id number] V: [id number] EXAM DATE: ORDERING PHYSICIAN: NANETTE SEQUEIRA TECHNOLOGIST: Location: [facility] [place] Patient: Gricelda Victor : 1965 Visit/Account:[id number] Date of Sevice: 11/07/2017 CHEST SINGLE AP HISTORY: Right pleural effusion following thoracentesis right side. COMPARISON: November 07, 2017 1239 hours. FINDINGS: Cardiomediastinal contours: Normal Lungs and pleura: Comparison the previous study shows that there has been significant interval decrea se in the size of the previously noted right pleural effusion. There is residual pleural fluid sugges ting that the effusion is loculated following thoracentesis. There is passive atelectasis manifesting as volume loss and shift of the mediastinal structures to the right. There is no resultant pneumotho rax. Bones/soft tissues: There are no findings of a fracture. IMPRESSION: 1. Patient status post right thoracentesis with interval decrease in the size of the previously noted right pleural effusion. 2. Shift of the mediastinal structures to the right suggests residual volume loss and/or scar in the right lower lobe. 3. No pneumothorax. Results were called to Blanca Jarrett M.D. At 11/07/2017 2:08 PM. Report Dictated By: Surendra Rushing MD at 11/07/2017 2:05 PM Report E-Signed By: Surendra Rushing MD at 11/07/2017 2:08 PM WSN:[id number]
== END 2017-11-07 14:20 | disposition home or self-care (01) ==
LOC: ER 11:47
DX: J90 Pleural effusion, not elsewhere classified (principal)
CPT/HCPCS: 32554; 71045; 71046; 83880; 84484; 84703; 85025; 93005; 94640; 99284; A7048; J7620; 82040; 82247; 82310; 82374; 82435; 82565; 82947; 84075; 84132; 84155; 84295; 84450; 84460; 84520

== ENCOUNTER → 2017-11-30 | Outpatient (CLI) | payer SELFPAY ==
[2017-10-21 13:57] VITALS: BMI 33.6
[~2017-11-30] MED LIST changes: +METF500T4 PO
[2017-11-30 15:49] LABS: PLATELET COUNT, AUTOMATED 211 K/uL (150-450)
== END ==
LOC: LAB 15:15
PROVIDERS: ATTEND Internal Medicine
DX: J90 Pleural effusion, not elsewhere classified (principal); R10.9 Unspecified abdominal pain; E11.9 Type 2 diabetes mellitus without complications; R97.1 Elevated cancer antigen 125 [CA 125]; K74.60 Unspecified cirrhosis of liver
CPT/HCPCS: 36415; 82040; 82247; 82310; 82374; 82435; 82565; 82947; 84075; 84132; 84155; 84295; 84450; 84460; 84520; 85025; 86304

== ENCOUNTER 2018-01-06 09:58 | Outpatient (RCR) | payer SELFPAY ==
[2017-10-21 13:57] VITALS: Ht 153.7 cm
[2018-01-06 10:17] VITALS: BP 123/80
[2018-01-06 11:15] LABS: PLATELET COUNT, AUTOMATED 218 K/uL (150-450)
--- NOTE | 2018-01-07 04:15 | ONCOLOGY CONSULTATION ---
EVENT DATE: January 06, 2018 REFERRING PHYSICIAN: Carlos Tomas MD REASON FOR CONSULTATION Evaluation and management of high CA-125 at 509. HISTORY OF PRESENT ILLNESS The patient is a 52-year-old female who was diagnosed with liver cirrhosis with ascites since August 2017. She had a liver needle biopsy done on August 18, 2017, which came back negative for malignancy, but with early cirrhosis and mild parenchymal steatosis. There is no active hepatitis or granulomas. Patient has ascites and right pleural effusion, and she had repeated tapping in the past. On October 21, 2017, her cytology from the pleural fluid was negative for malignancy. PAST MEDICAL HISTORY 1. History of pituitary brain tumor. 2. Hyperlipidemia. 3. Asthma. 4. Depression. 5. Diabetes type 2. 6. Hypothyroidism. 7. Osteoporosis. 8. Degenerative disk disease. 9. Osteoarthritis of both knees. 10. Sleep apnea. PAST SURGICAL HISTORY 1. Pituitary brain tumor resection. 2. Appendectomy. SOCIAL HISTORY Patient is with three children. She is on disability. She has smoked about a quarter pack a day for 30 years. She drinks occasionally, denies any abuse of illicit drugs. FAMILY HISTORY Mother had breast cancer. Maternal aunt had also breast cancer. CURRENT MEDICATIONS 1. Metformin 1000 mg each evening. 2. Spironolactone 25 mg tablet 2 tablets daily. 3. Albuterol sulfate inhaler 2 puffs every 4-6 hours p.r.n.. 4. Citalopram 40 mg daily. 5. Omeprazole 20 mg daily. 6. Levothyroxine 75 mcg daily. 7. Insulin Levemir 10 units subcutaneously at bedtime. 8. Triamcinolone acetonide 0.1% 15 gram cream topical twice daily. ALLERGIES PENICILLIN, LEVAQUIN. Both cause skin rash. REVIEW OF SYSTEMS CONSTITUTIONAL: Patient has some sweating, loss of appetite and weight. HEENT: Ears: No tinnitus or hearing problem. Nose: No nasal discharge or epistaxis. Throat: No sore throat or mouth ulcers. Eyes: No diplopia or visual changes. RESPIRATORY: She has cough with expectoration, shortness of breath and wheezing. CARDIOVASCULAR: No chest pain, orthopnea, or paroxysmal nocturnal dyspnea (PND) . No edema. No palpitations. GASTROINTESTINAL: She had alternating diarrhea and constipation, abdominal pain and distention from ascites. GENITOURINARY: No hematuria or dysuria. MUSCULOSKELETAL: She has pain in her lower back down to her lower extremities. NEUROLOGICAL: She has headache. HEMATOLOGIC/LYMPHATIC: No bleeding or easy bruising. No weakness or fatigued. No enlarged lymph nodes. SKIN: No skin rash or lumps. PSYCHIATRIC: No anxiety or depression. PHYSICAL EXAMINATION GENERAL: Looks stable. Well-developed, well-nourished, and in no acute distress. VITAL SIGNS: Blood pressure 123/80, pulse 81 per minute, respirations 16 per minute, temperature 100, pulse oximetry 90% on room air. HEENT: Head: Atraumatic. No sinus tenderness to palpation. Eyes: No icterus or conjunctivitis. Mouth and throat: No oral thrush or mucositis. NECK: Supple. No cervical or supraclavicular lymphadenopathy. LUNGS: Clear to auscultation and percussion bilaterally. HEART: Regular rate and rhythm. No gallops, murmurs, clicks or rubs. ABDOMEN: The liver is palpable about a hand breadth below the right costal margin, firm in consistency, not tender. There may be also clinical ascites, but not severe. EXTREMITIES: No cyanosis, clubbing or edema. LYMPHATICS: No peripheral lymphadenopathy. NEUROLOGICAL: Conscious, alert and oriented times three. No focal motor or sensory deficits. PSYCHIATRIC: Mood and affect appear normal. SKIN: No skin rash, bruise or purpuric eruption. ASSESSMENT 1. High CA-125 at 509, could be due to either malignancy in the gynecologic organs like the ovaries, fallopian tubes or the uterus, or could be due to benign ascites from her cirrhosis. I am planning to get a CT chest, abdomen, pelvis with IV and oral contrast for further evaluation. If those scans are negative for any masses, then most probably her CA-125 is high due to her benign ascites. I will ask also if she will have paracentesis in the future to do a cytology from her ascitic fluid. I am planning to repeat her CBC, Chem panel and CA-125 to see if the CA-125 is rising up or not. I explained that to the patient and her mother, and they are agreeable with the plan of management. 2. Liver cirrhosis with ascites and right pleural effusion. She is currently on treatment with diuretic therapy. PLAN 1. CT chest, abdomen, pelvis with IV and oral contrast. 2. CBC, Chem panel, CA-125. 3. Patient to return in one week for further evaluation and management. 4. Patient to contact us for any new concerns or complaints. TAMEKA
[2018-01-11] MEDS ORDERED: CEPH500T7 PO (12:33)
[2018-01-11] MEDS ORDERED: LOR5/325 PO (12:33)
[2018-01-13] MEDS ORDERED: IOPAMIDOL 76% 75 ML INFUS BTL 75 ML ONE (09:26)
--- NOTE | 2018-01-13 14:18 | RADIOLOGY IMAGING REPORT ---
FACILITY: [facility] PATIENT NAME: Gricelda Victor : 1965 MR: [id number] V: [id number] EXAM DATE: ORDERING PHYSICIAN: ANSHU LAGUERRE TECHNOLOGIST[place] [facility] [place]ric[place]da [place] : 1965 Visit/Account:[id number] Date of Sevice: 01/13/2018 CHEST/AB/PELV W/WO CONTRAST HISTORY: Ascites, cirrhosis ADDITIONAL HISTORY: None. TECHNIQUE: Pre and post administration of IV contrast axial images acquired through the chest abdome n and pelvis during the portal venous phase. Coronal and sagittal reformatting was also performed. D ose Lowering Technique One of the following dose optimization techniques was utilized in the performance of this exam: Autom ated exposure control; adjustment of the mA and/or kV according to the patient's size; or use of an i terative reconstruction technique. Specific details can be referenced in the facility's radiology C T exam operational policy. CONTRAST: 75 mL Isovue-370 COMPARISON: CTA chest October 20, [address] of abdomen pelvis July 28, 2017 FINDINGS: CHEST: Lungs/Pleura: Large right pleural effusion slightly decreased in size. There is collapse of the rig ht lower lobe and right middle lobe and a portion of the right upper lobe Mediastinum/lymph nodes: Negative. Heart/vessels: Negative. Bones/soft tissues: Negative ABDOMEN AND PELVIS: Hepatobiliary: The liver is enlarged with a nodular surface. The main portal vein appears patent. There are multiple gallstones although no evidence of bony ductal dilatation. The gallbladder appear s moderately distended although the wall does not appear thickened Spleen: Borderline mild enlargement Pancreas: Negative. Adrenals: Negative. Kidneys ureters and bladder : Negative. Genitalia: Uterus appears atrophic there is thickening of the endometrium measuring 1.5 cm in thickne ss GI: Negative. Vessels/spaces/nodes: Several mildly prominent retroperitoneal lymph nodes appear similar to the lisbeth or study Bones/soft tissues: Spondylotic changes L5-S1 Additional findings: There has been marked improvement of the previously noted abdominal pelvic asci reyna. Only a trace amount of ascites seen over the anterior superior aspect of the liver IMPRESSION: Large right pleural effusion is slightly decreased in size There is persistent collapse of the right lower lobe, right middle lobe and a portion of the right up per lobe. Hepatomegaly with a nodular surface to the liver consistent with clinical history of cirrhosis. Cholelithiasis although no evidence of biliary ductal dilatation. The gallbladder appears moderately distended although the wall does not appear thickened. This could be related to a fasting state. C linical correlation needed 4. Lines and megaly unchanged The uterus appears atrophic although there is thickening of the endometrium. Pelvic ultrasound is re commended. There is been marked improvement of previously noted abdominal pelvic ascites with only a trace amoun t of ascites seen in the upper abdomen Report Dictated By: Hilda Dash MD at 01/13/2018 1:59 PM Report E-Signed By: Hilda Dash MD at 01/13/2018 2:12 PM LILI:LANDON
== END 2018-01-26 15:33 | disposition home or self-care (01) ==
LOC: ONC 09:58
PROVIDERS: ATTEND Internal Medicine Hematology
DX: R97.1 Elevated cancer antigen 125 [CA 125] (principal); K74.60 Unspecified cirrhosis of liver; R18.8 Other ascites; J90 Pleural effusion, not elsewhere classified; F17.210 Nicotine dependence, cigarettes, uncomplicated; Z79.899 Other long term (current) drug therapy; R05 Cough; R06.02 Shortness of breath; R06.2 Wheezing; R51 Headache; M54.5 Low back pain; R16.0 Hepatomegaly, not elsewhere classified; K80.20 Calculus of gallbladder without cholecystitis without obstruction
CPT/HCPCS: 36415; 71270; 72194; 74170; 85025; 86304; 99202; Q9967; 82040; 82247; 82310; 82374; 82435; 82565; 82947; 84075; 84132; 84155; 84295; 84450; 84460; 84520

== ENCOUNTER 2018-01-11 12:08 | Emergency (ER) | payer SELFPAY ==
[2017-10-21 13:57] VITALS: Wt 79.8 kg
--- NOTE | 2018-01-11 12:11 | ER Report ---
History and Physical Time Seen By MD: 12:10 HPI/ROS CHIEF COMPLAINT: Dental pain HISTORY OF PRESENT ILLNESS: 53-year-old female with history of multiple past dental caries and fractured teeth presents with developing onset Wednesday worsening right lower incisor sensitive to hot and cold as well as pressure chills yesterday no fevers no nausea vomiting denies other complaints or concerns at this time. REVIEW OF SYSTEMS: Respiratory: No cough, no dyspnea. Cardiovascular: No chest pain, no palpitations. Gastrointestinal: No vomiting, no abdominal pain. Musculoskeletal: No back pain. Allergies: Coded Allergies: Penicillins (Verified Allergy, Intermediate, ITCHING, 01/11/18) levofloxacin (Verified Allergy, Intermediate, HIVES, 01/11/18) Home Meds Active Scripts Metformin Hcl (METFORMIN HCL ER) 500 Mg Tab.er.24, 2 TAB PO QPM, #60 TAB 5 Refills Prov:MONICA WASHBURN MD 11/30/17 Spironolactone (SPIRONOLACTONE) 25 Mg Tablet, 50 MG PO QDAY, #60 TAB 5 Refills Prov:MONICA WASHBURN MD 11/30/17 Triamcinolone Acetonide 0.1% Cr 15 Gm Tube (TRIAMCINOLONE ACETONIDE 0.1% CREAM) 15 Gm Cream..g., 15 GM TP BID, #1 TUBE 3 Refills Prov:NANETTE SEQUEIRA MD 10/31/17 Reported Medications Albuterol Sulfate 90 Mcg/Act (PROAIR HFA 90 MCG/ACT) 8.5 Gm Hfa.aer.ad, 2 PUFF IH Q4-6H, INHALER 11/02/17 Citalopram Hydrobromide (CITALOPRAM HBR) 40 Mg Tablet, 40 MG PO QDAY, TAB 11/02/17 Omeprazole (OMEPRAZOLE) 20 Mg Tablet.dr, 20 MG PO QDAY, TAB 11/02/17 Levothyroxine Sodium (LEVOTHYROXINE SODIUM) 75 Mcg Tablet, 75 MCG PO QDAY, TAB 11/02/17 Insulin Detemir (LEVEMIR) 100 Unit/Ml Injs, 10 UNIT SUBQ QHS 11/02/17 Hx Smoking: Yes (1 pack every 4-5 days 25 YRS) Smoking Status: Current: Every Day Smoker Exposure to Second Hand Smoke?: Yes Hx Substance Use Disorder: No Hx Alcohol Use: No Constitutional Vital Sign - Last 24 Hours 01/11/18 12:11 Temp 98.4 Pulse 97 Resp 19 B/P (MAP) 129/82 Pulse Ox 90 O2 Delivery Room Air Physical Exam General Appearance: The patient is alert, has no immediate need for airway protection and no current signs of toxicity. No acute distress Eyes: Pupils equal and round no injection. Dental: 4 teeth right lower jaw went onto nubs making tooth identification difficult however right incisor seems to be tender to tap no signs of gum abscess other teeth appear normal other than as above. Respiratory: Chest is non tender, lungs are clear to auscultation. Cardiac: regular rate and rhythm no murmurs gallops or rubs Gastrointestinal: Abdomen is soft and non tender, no masses, bowel sounds normal. Musculoskeletal: Neck: Neck is supple and non tender. Extremities have full range of motion and are non tender. Skin: No rashes or lesions. No edema DIFFERENTIAL DIAGNOSIS: After history and physical exam differential diagnosis was considered for periapical abscess, fracture or infection. Periodontal abscess. Medical Decision Making ED Course/Re-evaluation ED Course Agrees to follow with up with a dentist in a timely fashion. Instructed to continue Aleve as previously taken for pain and inflammation will provide a small supply of [place] for breakthrough pain. Reports allergy to penicillin and Levaquin asking for that she was prescription available Keflex is on the [employer] $4 list I cautioned her about cross-reactivity fairly low risk related to her penicillin allergy. She wants to avoid Clinda due to the cost Decision to Disposition Date: Jan 11, 2018 Decision to Disposition Time: 12:29 Depart Departure Latest Vital Signs Vital Signs Date Time Temp Pulse Resp B/P (MAP) Pulse Ox O2 Delivery O2 Flow Rate FiO2 01/11/18 12:11 98.4 97 19 129/82 90 Room Air Impression: Primary Impression: Dental decay Condition: Improved Disposition: HOME OR SELF-CARE Referrals: MONICA WASHBURN MD (PCP) New Scripts Cephalexin 500 Mg Tab (KEFLEX 500 MG TAB) 500 Mg Tablet 500 MG PO Q6H for 10 Days, #28 TAB Prov: CHAIM POWERS MD 01/11/18 Hydrocodone Bit/Acetaminophen (HYDROCODON-ACETAMINOPHEN 5-325) 1 Each Tablet 1 EACH PO Q4H Y for PAIN, #12 TAB 0 Refills Prov: CHAIM POWERS MD 01/11/18 Patient Instructions: Dental Abscess (ED) CHAIM POWERS MD Jan 11, 2018 12:11
[2018-01-11 12:30] VITALS: BP 115/68
[2018-01-11] MEDS ORDERED: CEPH500T7 PO (12:33)
[2018-01-11] MEDS ORDERED: LOR5/325 PO (12:33)
== END 2018-01-11 12:38 | disposition home or self-care (01) ==
LOC: ER 12:19
DX: K02.9 Dental caries, unspecified (principal); F17.210 Nicotine dependence, cigarettes, uncomplicated
CPT/HCPCS: 99282

== ENCOUNTER 2018-03-22 20:17 | Emergency (ER) | payer MEDICAID ==
[2017-10-21 13:57] VITALS: Wt 79.8 kg
[~2018-03-22 20:17] MED LIST changes: -CITA-139 PO; +CITA-145 PO; -METF-420 PO; +METF-421 PO
--- NOTE | 2018-03-22 20:25 | ER Report ---
History and Physical Time Seen By MD: 20:17 Hx. of Stated Complaint: PATIENT HAS COUGH, AND SEVERE SORE THROAT. HPI/ROS CHIEF COMPLAINT: sore throat and cough HISTORY OF PRESENT ILLNESS: This is a 53 year old female. She has had a cough for several days. Now with a terrible sore throat that really worsened about 2 hours ago. Severe pain with swallowing, pain also worsens with cough. No shortness of breath otherwise. No chest pain. Allergies: Coded Allergies: Penicillins (Verified Allergy, Intermediate, ITCHING, 03/22/18) levofloxacin (Verified Allergy, Intermediate, HIVES, 03/22/18) Home Meds Active Scripts Metformin Hcl (METFORMIN HCL ER) 500 Mg Tab.er.24, 2 TAB PO QPM, #60 TAB 5 Refills Prov:MONICA WASHBURN MD 11/30/17 Spironolactone (SPIRONOLACTONE) 25 Mg Tablet, 50 MG PO QDAY, #60 TAB 5 Refills Prov:MONICA WASHBURN MD 11/30/17 Triamcinolone Acetonide 0.1% Cr 15 Gm Tube (TRIAMCINOLONE ACETONIDE 0.1% CREAM) 15 Gm Cream..g., 15 GM TP BID, #1 TUBE 3 Refills Prov:NANETTE SEQUEIRA MD 10/31/17 Reported Medications Albuterol Sulfate 90 Mcg/Act (PROAIR HFA 90 MCG/ACT) 8.5 Gm Hfa.aer.ad, 2 PUFF IH Q4-6H, INHALER 11/02/17 Citalopram Hydrobromide (CITALOPRAM HBR) 40 Mg Tablet, 40 MG PO QDAY, TAB 11/02/17 Omeprazole (OMEPRAZOLE) 20 Mg Tablet.dr, 20 MG PO QDAY, TAB 11/02/17 Levothyroxine Sodium (LEVOTHYROXINE SODIUM) 75 Mcg Tablet, 75 MCG PO QDAY, TAB 11/02/17 Insulin Detemir (LEVEMIR) 100 Unit/Ml Injs, 10 UNIT SUBQ QHS 11/02/17 Discontinued Scripts Cephalexin 500 Mg Tab (KEFLEX 500 MG TAB) 500 Mg Tablet, 500 MG PO Q6H for 10 Days, #28 TAB Prov:CHAIM POWERS MD 01/11/18 Hydrocodone Bit/Acetaminophen (HYDROCODON-ACETAMINOPHEN 5-325) 1 Each Tablet, 1 EACH PO Q4H Y for PAIN, #12 TAB 0 Refills Prov:CHAIM POWERS MD 01/11/18 Reviewed Nurses Notes: Yes Hx Smoking: Yes (1 pack every 4-5 days 25 YRS) Smoking Status: Current: Every Day Smoker Exposure to Second Hand Smoke?: Yes Hx Substance Use Disorder: No Hx Alcohol Use: No Constitutional Vital Sign - Last 24 Hours 03/22/18 03/22/18 20:21 22:31 Temp 99.0 Pulse 75 73 Resp 24 20 B/P (MAP) 138/99 136/93 (107) Pulse Ox 95 95 O2 Delivery Room Air Room Air Physical Exam General Appearance: The patient is alert, has no immediate need for airway protection and no current signs of toxicity. Eyes: Pupils equal and round no injection. ENT: Normal oral mucosa. Moist mucous membranes. Posterior oropharynx with erythema, some hypertrophy, but no exudates. Tympanic membranes are normal. Neck: Neck is supple and non tender. Anterior cervical lymphadenopathy, small. Respiratory: Chest is non tender, lungs are clear to auscultation. Cardiac: regular rate and rhythm Gastrointestinal: Abdomen is soft and non tender, no masses, bowel sounds normal. Musculoskeletal: Extremities have full range of motion. Skin: No rashes or lesions. DIFFERENTIAL DIAGNOSIS: After history and physical exam differential diagnosis was considered for sore throat and cough, likely viral pharyngitis. Medical Decision Making Data Points Laboratory Hematology Test 03/22/18 20:23 Group A Streptococcus Screen Negative (NEGATIVE) Chemistry Test 03/22/18 20:23 Group A Streptococcus Screen Negative (NEGATIVE) EKG/Imaging Imaging EXAMINATION: Chest 2 Views HISTORY: Cough. COMPARISON: 01/13/2018. FINDINGS: Large right pleural effusion, stable to slightly increased in volume from the prior exam. Adjacent consolidation and/or atelectasis of most of the lower right lung. The left lung is clear. No left-sided pleural effusion. No pneumothorax. Normal heart size and pulmonary vascularity. Visualized osseous structures appear intact. IMPRESSION: 1. Large right pleural effusion, stable to slightly increased in volume from the prior exam. 2. Adjacent consolidation and/or atelectasis in the lower right lung. Report Dictated By: Aguilar Pradhan MD at 03/22/2018 8:45 PM ED Course/Re-evaluation ED Course Negative strep. Chest x-ray negative. Conservative management discussed including given some Magic Mouthwash to help with pain. Decision to Disposition Date: March 22, 2018 Decision to Disposition Time: 22:16 Depart Departure Latest Vital Signs Vital Signs Date Time Temp Pulse Resp B/P (MAP) Pulse Ox O2 Delivery O2 Flow Rate FiO2 03/22/18 22:31 73 20 136/93 (107) 95 Room Air 03/22/18 20:21 99.0 Impression: Primary Impression: Viral pharyngitis Condition: Improved Disposition: HOME OR SELF-CARE Referrals: MONICA WASHBURN MD (PCP) Patient Instructions: Pharyngitis (ED) Additional Instructions: Your sore throat and cough are caused by a virus. These will need to get better on their own. We would like you to rest and increase fluid intake for the next few days. Take Tylenol or Ibuprofen over the counter tablets as needed for pain. Take 1 teaspoon of the magic mouthwash, swish, gargle and swallow, every 6 hours as needed for sore throat pain. THAIS GIPSON MD March 22, 2018 20:25
--- NOTE | 2018-03-22 20:51 | RADIOLOGY IMAGING REPORT ---
FACILITY: [facility] PATIENT NAME: Gricelda Victor : 1965 MR: [id number] V: [id number] EXAM DATE: ORDERING PHYSICIAN: THAIS GIPSON TECHNOLOGIST: Location: [facility] - [place] Patient: Gricelda Victor : 1965 Visit/Account:[id number] Date of Sevice: 03/22/2018 EXAMINATION: Chest 2 Views HISTORY: Cough. COMPARISON: 01/13/2018. FINDINGS: Large right pleural effusion, stable to slightly increased in volume from the prior exam. Adjacent co nsolidation and/or atelectasis of most of the lower right lung. The left lung is clear. No left-sided pleural effusion. No pneumothorax. Normal heart size and pulmonary vascularity. Visualized osseous structures appear intact. IMPRESSION: 1. Large right pleural effusion, stable to slightly increased in volume from the prior exam. 2. Adjacent consolidation and/or atelectasis in the lower right lung. Report Dictated By: Aguilar Pradhan MD at 03/22/2018 8:45 PM Report E-Signed By: Aguilar Pradhan MD at 03/22/2018 8:47 PM WSN:[id number]
[2018-03-22] MEDS ORDERED: MAG HYD/AL HYD/SIMETH 30ML UDC PO ONE (22:15)
[2018-03-22] MEDS ORDERED: LIDOCAINE 2% VISC SLN 15ML UDC PO ONE (22:15)
[2018-03-22 22:31] VITALS: BP 136/93
== END 2018-03-22 22:31 | disposition home or self-care (01) ==
LOC: ER 20:46
DX: J02.9 Acute pharyngitis, unspecified (principal); J90 Pleural effusion, not elsewhere classified
CPT/HCPCS: 87081; 87880; 99283; Q0163; 71046

== ENCOUNTER 2018-05-12 13:22 | Outpatient (RCR) | payer MEDICAID ==
[2017-10-21 13:57] VITALS: Wt 79.2 kg
[2018-05-09 13:07] VITALS: BP 109/72
[~2018-05-12 13:22] MED LIST changes: -SPIR25TA78 PO; +SPIR25TA80 PO; -SPIR50TA31 PO; +SPIR50TA33 PO
[2018-05-12 13:35] VITALS: BP 123/78
--- NOTE | 2018-05-12 17:21 | ONCOLOGY FOLLOW UP NOTE ---
EVENT DATE: May 12, 2018 DIAGNOSES 1. High CA-125, most probably due to her ascites. 2. Liver cirrhosis with ascites and right pleural effusion. CHIEF COMPLAINT Patient is here today for followup of her high CA-125. HEMATOLOGY/ONCOLOGY HISTORY The patient is a 52-year-old female who was diagnosed with liver cirrhosis with ascites since August 2017. She had a liver needle biopsy done on August 18, 2017, which came back negative for malignancy, but with early cirrhosis and mild parenchymal steatosis. There is no active hepatitis or granulomas. Patient has ascites and right pleural effusion, and she had repeated tapping in the past. On October 21, 2017, her cytology from the pleural fluid was negative for malignancy. HISTORY OF PRESENT ILLNESS Patient is here today for followup of her high CA-125. She is doing fine currently. She is complaining of runny nose. She has cough with expectoration and shortness of breath. She has occasional constipation. She has generalized joint pains especially in the lower extremities. She has occasional headache. she is weak, tired and fatigued. PAST MEDICAL HISTORY 1. History of pituitary brain tumor. 2. Hyperlipidemia. 3. Asthma. 4. Depression. 5. Diabetes type 2. 6. Hypothyroidism. 7. Osteoporosis. 8. Degenerative disk disease. 9. Osteoarthritis of both knees. 10. Sleep apnea. PAST SURGICAL HISTORY 1. Pituitary brain tumor resection. 2. Appendectomy. SOCIAL HISTORY Patient is with three children. She is on disability. She has smoked about a quarter pack a day for 30 years. She drinks occasionally, denies any abuse of illicit drugs. FAMILY HISTORY Mother had breast cancer. Maternal aunt had also breast cancer. CURRENT MEDICATIONS 1. Metformin 1000 mg each evening. 2. Spironolactone 25 mg tablet 2 tablets daily. 3. Albuterol sulfate inhaler 2 puffs every 4-6 hours p.r.n.. 4. Citalopram 40 mg daily. 5. Omeprazole 20 mg daily. 6. Levothyroxine 75 mcg daily. 7. Insulin Levemir 10 units subcutaneously at bedtime. 8. Triamcinolone acetonide 0.1% 15 gram cream topical twice daily. ALLERGIES PENICILLIN, LEVAQUIN. Both cause skin rash. REVIEW OF SYSTEMS CONSTITUTIONAL: Patient has some sweating, loss of appetite and weight. HEENT: Ears: No tinnitus or hearing problem. Nose: She has nasal discharge. No epistaxis. Throat: No sore throat or mouth ulcers. Eyes: No diplopia or visual changes. RESPIRATORY: She has cough with expectoration and shortness of breath. CARDIOVASCULAR: No chest pain, orthopnea, or paroxysmal nocturnal dyspnea (PND) . No edema. No palpitations. GASTROINTESTINAL: She has constipation. GENITOURINARY: No hematuria or dysuria. MUSCULOSKELETAL: She has pain in her joints of the lower extremities. NEUROLOGICAL: She has occasional headache. HEMATOLOGIC/LYMPHATIC: No bleeding or easy bruising. She is weak, tired and fatigued. No enlarged lymph nodes. SKIN: No skin rash or lumps. PSYCHIATRIC: No anxiety or depression. PHYSICAL EXAMINATION GENERAL: Looks stable. Well-developed, well-nourished, and in no acute distress. VITAL SIGNS: Blood pressure 123/78, pulse 76 per minute, respirations 16 per minute, temperature 98.9, pulse oximetry 90% on room air. HEENT: Head: Atraumatic. No sinus tenderness to palpation. Eyes: No icterus or conjunctivitis. Mouth and throat: No oral thrush or mucositis. NECK: Supple. No cervical or supraclavicular lymphadenopathy. LUNGS: Clear to auscultation and percussion bilaterally. HEART: Regular rate and rhythm. No gallops, murmurs, clicks or rubs. ABDOMEN: The liver is palpable about a hand breadth below the right costal margin, firm in consistency, not tender. There may be also clinical ascites, but not severe. EXTREMITIES: No cyanosis, clubbing or edema. LYMPHATICS: No peripheral lymphadenopathy. NEUROLOGICAL: Conscious, alert and oriented times three. No focal motor or sensory deficits. PSYCHIATRIC: Mood and affect appear normal. SKIN: No skin rash, bruise or purpuric eruption. DIAGNOSTIC DATA CA-125 is 106, which is down from 304. ASSESSMENT 1. High CA-125 at 509, most probably due to her ascites. The patient did not have any evidence of malignancy by imaging. Her CA-125 is dropping gradually by time. It dropped from 509 to 304 and currently 106. It seems ascites is the cause of that. I am planning to continue followup. I will see her again in three months with another CA-125. I assured the patient this is actually due to her ascites rather than being the marker for cancer, and the patient is happy with that. 2. Liver cirrhosis with ascites and right pleural effusion. She is under diuretic therapy. PLAN 1. Continue followup. 2. Patient to return in three months with CA-125. 3. Patient to contact us for any new concerns or complaints. TAMEKA
== END 2018-05-27 09:50 | disposition home or self-care (01) ==
LOC: ONC 13:22
PROVIDERS: ATTEND Internal Medicine Hematology
DX: R97.1 Elevated cancer antigen 125 [CA 125] (principal); K74.60 Unspecified cirrhosis of liver; R18.8 Other ascites; J90 Pleural effusion, not elsewhere classified; F17.210 Nicotine dependence, cigarettes, uncomplicated; Z79.899 Other long term (current) drug therapy; R05 Cough; R51 Headache; M54.5 Low back pain; R16.0 Hepatomegaly, not elsewhere classified; K80.20 Calculus of gallbladder without cholecystitis without obstruction; E03.9 Hypothyroidism, unspecified; E11.9 Type 2 diabetes mellitus without complications; E78.5 Hyperlipidemia, unspecified; J45.909 Unspecified asthma, uncomplicated; F32.9 Major depressive disorder, single episode, unspecified; M81.0 Age-related osteoporosis without current pathological fracture; M17.0 Bilateral primary osteoarthritis of knee; G47.30 Sleep apnea, unspecified; Z79.84 Long term (current) use of oral hypoglycemic drugs
CPT/HCPCS: 36415; 86304; G0463; 99212

== ENCOUNTER 2018-06-18 15:54 | Emergency (ER) | payer MEDICAID ==
[2017-10-21 13:57] VITALS: Wt 79.8 kg
--- NOTE | 2018-06-18 15:56 | ER Report ---
History and Physical Time Seen By MD: 15:56 (JULIA RUANO DO) HPI/ROS CHIEF COMPLAINT: Pleural effusion, shortness of breath HISTORY OF PRESENT ILLNESS: Patient is a 53-year-old female here with a history of ascites and recurrent pleural effusions requiring thoracenteses. Patient complained of progressive shortness of breath in spite of being 96% on room air initially. Patient was afebrile, hemodynamically stable otherwise. Patient denies being on anticoagulants. Last thoracentesis was approximately greater than one month prior. Patient denies chest pain, headache, blurred vision, abdominal pain, nausea, vomiting. Patient also is a known smoker and has a history of asthma. REVIEW OF SYSTEMS: Constitutional: No fever, no chills. Eyes: No discharge. ENT: No sore throat. Cardiovascular: No chest pain, no palpitations. Respiratory: No cough, + shortness of breath. Gastrointestinal: No abdominal pain, no vomiting. Genitourinary: No hematuria. Musculoskeletal: No back pain. Skin: No rashes. Neurological: No headache. (JULIA RUANO DO) Allergies: Coded Allergies: Penicillins (Verified Allergy, Intermediate, ITCHING, 06/18/18) levofloxacin (Verified Allergy, Intermediate, HIVES, 06/18/18) Home Meds Active Scripts Metformin Hcl (METFORMIN HCL ER) 500 Mg Tab.er.24, 2 TAB PO QPM, #60 TAB 5 Refills Prov:MONICA WASHBURN MD 11/30/17 Spironolactone (SPIRONOLACTONE) 25 Mg Tablet, 50 MG PO QDAY, #60 TAB 5 Refills Prov:MONICA WASHBURN MD 11/30/17 Triamcinolone Acetonide 0.1% Cr 15 Gm Tube (TRIAMCINOLONE ACETONIDE 0.1% CREAM) 15 Gm Cream..g., 15 GM TP BID, #1 TUBE 3 Refills Prov:NANETTE SEQUEIRA MD 10/31/17 Reported Medications Albuterol Sulfate 90 Mcg/Act (PROAIR HFA 90 MCG/ACT) 8.5 Gm Hfa.aer.ad, 2 PUFF IH Q4-6H, INHALER 11/02/17 Citalopram Hydrobromide (CITALOPRAM HBR) 40 Mg Tablet, 40 MG PO QDAY, TAB 11/02/17 Omeprazole (OMEPRAZOLE) 20 Mg Tablet.dr, 20 MG PO QDAY, TAB 11/02/17 Levothyroxine Sodium (LEVOTHYROXINE SODIUM) 75 Mcg Tablet, 75 MCG PO QDAY, TAB 11/02/17 Insulin Detemir (LEVEMIR) 100 Unit/Ml Injs, 10 UNIT SUBQ QHS 11/02/17 Hx Smoking: Yes (1 pack every 4-5 days 25 YRS) Smoking Status: Current: Every Day Smoker Exposure to Second Hand Smoke?: Yes Hx Substance Use Disorder: No Hx Alcohol Use: No (JULIA RUANO DO) Constitutional Vital Sign - Last 24 Hours 06/18/18 06/18/18 06/18/18 06/18/18 15:57 15:59 15:59 16:00 Temp 98.7 Pulse 75 75 Resp 25 30 B/P (MAP) 127/76 (93) 127/76 111/72 (85) Pulse Ox 93 93 O2 Delivery Room Air 06/18/18 06/18/18 06/18/18 06/18/18 16:04 16:09 16:10 16:10 Pulse 76 75 68 Resp 23 17 20 Pulse Ox 92 92 O2 Delivery Room Air 06/18/18 06/18/18 06/18/18 06/18/18 16:22 16:30 16:30 16:30 Pulse 72 74 Resp 20 20 B/P (MAP) 115/87 (96) Pulse Ox 90 O2 Delivery Room Air 06/18/18 06/18/18 06/18/18 06/18/18 16:36 16:39 16:44 16:52 Pulse 76 71 73 Resp 20 17 16 O2 Flow Rate 2.0 06/18/18 06/18/18 06/18/18 06/18/18 16:59 17:00 17:14 17:29 Pulse 73 82 73 Resp 35 25 14 B/P (MAP) 122/92 (102) 06/18/18 06/18/18 06/18/18 06/18/18 17:30 17:44 17:49 18:00 Pulse 78 74 Resp 18 20 B/P (MAP) 111/87 (95) 102/78 (86) Pulse Ox 91 06/18/18 06/18/18 06/18/18 06/18/18 18:04 18:09 18:30 18:39 Pulse 69 71 75 Resp 16 16 21 B/P (MAP) 113/76 (88) Pulse Ox 92 92 92 06/18/18 06/18/18 06/18/18 06/18/18 18:54 19:00 19:09 19:24 Pulse 75 76 76 Resp 18 17 16 B/P (MAP) 105/76 (86) Pulse Ox 92 93 94 06/18/18 06/18/18 19:30 19:39 Pulse 80 Resp 16 B/P (MAP) 113/76 (88) Pulse Ox 96 ([facility]) Physical Exam General Appearance: The patient is alert, has no immediate need for airway protection and no signs of toxicity. Mild distress secondary to shortness of breath Eyes: Pupils equal and round no pallor or injection. ENT, Mouth: Mucous membranes are moist. Respiratory: There are no retractions, + diminished breath sounds on right lung godfrey from mid lung down. Cardiovascular: Regular rate and rhythm. Gastrointestinal: Abdomen is soft and non tender, no masses, bowel sounds normal. Neurological: No focal neurological deficits Skin: Warm and dry, no rashes. Musculoskeletal: Neck is supple non tender. Extremities are nontender, nonswollen and have full range of motion. DIFFERENTIAL DIAGNOSIS: After history and physical exam differential diagnosis was considered for shortness of breath including but not limited to pulmonary infectious process, COPD, asthma, pulmonary embolus and congestive heart failure , pleural effusion (RUANO,JULIA S DO) Medical Decision Making Data Points Result Diagram: 06/18/18 1848 06/18/18 1610 Laboratory Hematology Test 06/18/18 16:10 06/18/18 18:48 Prothrombin Time 15.6 seconds (12.0-14.4) Prothromb Time International Ratio 1.24 Activated Partial Thromboplast Time 41 seconds (23-35) Blood Gas Patient Temperature Unknown DEGREES Venous Blood pH 7.35 (7.31-7.41) Venous Blood Partial Pressure CO2 44 mmHg Venous Blood Partial Pressure O2 < 35 mmHg Venous Blood HCO3 25 mmol/L Venous Blood Oxygen Saturation 63 % Venous Blood Base Excess -1 mmol/L Oxygen Liters/Minute Unknown Sodium Level 141 mmol/L (137-145) Potassium Level 3.4 mmol/L (3.5-5.0) Chloride Level 102 mmol/L (98-107) Carbon Dioxide Level 25 mmol/L (22-31) Blood Urea Nitrogen 10 mg/dl (7-18) Creatinine 1.10 mg/dl (0.52-1.04) Glomerular Filtration Rate Calc 52.2 Random Glucose 143 mg/dl (75-110) Calcium Level 9.3 mg/dl (8.4-10.2) Total Bilirubin 0.8 mg/dl (0.2-1.3) Aspartate Amino Transf (AST/SGOT) 25 U/L (0-35) Alanine Aminotransferase (ALT/SGPT) 25 U/L (0-56) Alkaline Phosphatase 85 U/L (0-126) Troponin I < 0.012 ng/ml B-Type Natriuretic Peptide 25 pg/ml (0-100) Total Protein 8.3 g/dl (6.3-8.2) Albumin 4.9 g/dl (3.5-5.0) Red Blood Count 4.35 M/uL (4.17-5.56) Mean Corpuscular Volume 89.3 fL (80.0-96.0) Mean Corpuscular Hemoglobin 31.1 pg (26.0-33.0) Mean Corpuscular Hemoglobin Concent 34.8 g/dL (32.0-36.0) Red Cell Distribution Width 13.7 % (11.5-14.5) Mean Platelet Volume 9.1 fL (7.2-11.1) Neutrophils (%) (Auto) 57.4 % (39.4-72.5) Lymphocytes (%) (Auto) 32.1 % (17.6-49.6) Monocytes (%) (Auto) 4.6 % (4.1-12.4) Eosinophils (%) (Auto) 5.1 % (0.4-6.7) Basophils (%) (Auto) 0.8 % (0.3-1.4) Nucleated RBC Relative Count (auto) 0.1 /100WBC Neutrophils # (Auto) 4.7 K/uL (2.0-7.4) Lymphocytes # (Auto) 2.6 K/uL (1.3-3.6) Monocytes # (Auto) 0.4 K/uL (0.3-1.0) Eosinophils # (Auto) 0.4 K/uL (0.0-0.5) Basophils # (Auto) 0.1 K/uL (0.0-0.1) Nucleated RBC Absolute Count (auto) 0.01 K/uL Chemistry Test 06/18/18 16:10 06/18/18 18:48 Prothrombin Time 15.6 seconds (12.0-14.4) Prothromb Time International Ratio 1.24 Activated Partial Thromboplast Time 41 seconds (23-35) Blood Gas Patient Temperature Unknown DEGREES Venous Blood pH 7.35 (7.31-7.41) Venous Blood Partial Pressure CO2 44 mmHg Venous Blood Partial Pressure O2 < 35 mmHg Venous Blood HCO3 25 mmol/L Venous Blood Oxygen Saturation 63 % Venous Blood Base Excess -1 mmol/L Oxygen Liters/Minute Unknown Glomerular Filtration Rate Calc 52.2 Calcium Level 9.3 mg/dl (8.4-10.2) Total Bilirubin 0.8 mg/dl (0.2-1.3) Aspartate Amino Transf (AST/SGOT) 25 U/L (0-35) Alanine Aminotransferase (ALT/SGPT) 25 U/L (0-56) Alkaline Phosphatase 85 U/L (0-126) Troponin I < 0.012 ng/ml B-Type Natriuretic Peptide 25 pg/ml (0-100) Total Protein 8.3 g/dl (6.3-8.2) Albumin 4.9 g/dl (3.5-5.0) White Blood Count 8.1 k/uL (4.5-11.0) Red Blood Count 4.35 M/uL (4.17-5.56) Hemoglobin 13.5 g/dL (12.0-16.0) Hematocrit 38.8 % (34.0-47.0) Mean Corpuscular Volume 89.3 fL (80.0-96.0) Mean Corpuscular Hemoglobin 31.1 pg (26.0-33.0) Mean Corpuscular Hemoglobin Concent 34.8 g/dL (32.0-36.0) Red Cell Distribution Width 13.7 % (11.5-14.5) Platelet Count 164 K/uL (150-450) Mean Platelet Volume 9.1 fL (7.2-11.1) Neutrophils (%) (Auto) 57.4 % (39.4-72.5) Lymphocytes (%) (Auto) 32.1 % (17.6-49.6) Monocytes (%) (Auto) 4.6 % (4.1-12.4) Eosinophils (%) (Auto) 5.1 % (0.4-6.7) Basophils (%) (Auto) 0.8 % (0.3-1.4) Nucleated RBC Relative Count (auto) 0.1 /100WBC Neutrophils # (Auto) 4.7 K/uL (2.0-7.4) Lymphocytes # (Auto) 2.6 K/uL (1.3-3.6) Monocytes # (Auto) 0.4 K/uL (0.3-1.0) Eosinophils # (Auto) 0.4 K/uL (0.0-0.5) Basophils # (Auto) 0.1 K/uL (0.0-0.1) Nucleated RBC Absolute Count (auto) 0.01 K/uL Coagulation Test 06/18/18 16:10 Prothrombin Time 15.6 seconds Prothromb Time International Ratio 1.24 Activated Partial Thromboplast Time 41 seconds ([facility]) EKG/Imaging EKG Interpretation 12 lead EKG: Normal sinus rhythm with short IN interval, rate 77, QTc 529 Rhythm: normal sinus rhythm with short IN interval Central: normal QRS: normal ST segments: normal Prolonged QT interval Monitor Interpretation: Normal Sinus Rhythm Imaging Location: [facility] - [place] Patient: Gricelda Victor : 1965 Visit/Account:[id number] Date of Sevice: 06/18/2018 2 VIEWS CHEST INDICATION: Respiratory distress. COMPARISON: 03/22/2018. FINDINGS: Cardiomediastinal silhouette and pulmonary vessels within normal limits. There is at least moderate right pleural effusion with right sided opacity. These findings are similar to the previous exam. No right pneumothorax. Left lung shows no consolidation, pneumothorax or pleural effusion. No discrete nodules. Upper abdomen is unremarkable. No acute bony abnormality. IMPRESSION: 1. Persistent at least moderate size right pleural effusion. The right lower lung field does show increased hazy opacity which is similar and may represent atelectasis or infiltrate. The left lung is clear. (JULIA RUANO DO) ED Course/Re-evaluation ED Course Patient is a 53-year-old female here with complaints of progressive shortness breath in the setting of ascites and recurrent pleural effusions. Patient was maintaining oxygen saturations of 96% on room air. Her last thoracentesis was greater than one month prior. Patient was afebrile, hemodynamically stable at time of evaluation. Patient was given Dilaudid and 2 mg of Ativan prior to thoracentesis attempt. Approximately 2 L of serous sanguinous but dark seemingly old blood tinged fluid was evacuated from the thoracic cavity under ultrasound guidance. Initial chest x-ray showed moderate right-sided pleural effusion. Repeat chest x-ray was completed after thoracentesis as well as a repeat CBC to confirm stable H & H. Patient tolerated the procedure well. (JULIA RUANO DO) ED Course I reviewed this patient with Dr. Ruano at shift change an assumed care. She has had a thoracentesis. Is currently post-procedure and awakening, waiting on repeat chest x-ray and labs. Repeat chest x-ray shows improvement. She feels a lot better. Okay to return home. Patient did have some nausea and an episode of emesis, Given Zofran and feels better. Decision to Disposition Date: Jun 18, 2018 Decision to Disposition Time: 20:18 (THAIS GIPSON MD) Depart Departure Latest Vital Signs Vital Signs Date Time Temp Pulse Resp B/P (MAP) Pulse Ox O2 Delivery O2 Flow Rate FiO2 06/18/18 19:39 80 16 96 06/18/18 19:30 113/76 (88) 06/18/18 16:52 2.0 06/18/18 16:30 Room Air 06/18/18 15:59 98.7 (THAIS GIPSON MD) Impression: Primary Impression: Pleural effusion Condition: Improved Referrals: MONICA WASHBURN MD (PCP) Patient Instructions: Pleural Effusion (ED) Additional Instructions: Approximately 2 L of fluid was removed from your right thoracic cavity. Your hemoglobin and hematocrit were stable at time of evaluation. Please follow-up with her family doctor in the next 2 days. Please return promptly if you develop increasing shortness of breath, fevers, dizziness, lightheadedness, pale or dusky skin. JULIA RUANO DO Jun 18, 2018 15:56 THAIS GIPSON MD Jun 18, 2018 19:27
[2018-06-18] MEDS: ALBUTEROL/IPRATROPIUM 3 ML NEB NEB SCH ×2 (16:21→16:23)
[2018-06-18 16:34] LABS: PLATELET COUNT, AUTOMATED 173 K/uL (150-450)
[2018-06-18] MEDS ORDERED: LORazepam 2 MG/ML VIAL IVP ONE (16:40)
[2018-06-18] MEDS ORDERED: HYDROMORPHONE HCL 1 MG/ML SYRINGE IVP ONE (16:40)
[2018-06-18 16:49] LABS: INR 1.24
--- NOTE | 2018-06-18 16:49 | RADIOLOGY IMAGING REPORT ---
FACILITY: [facility] - [place] PATIENT NAME: Gricelda Victor : 1965 MR: [id number] V: [id number] EXAM DATE: ORDERING PHYSICIAN: JULIA WRIGHT TECHNOLOGIST: Location: [facility] - [place] Patient: Gricelda Victor : 1965 Visit/Account:[id number] Date of Sevice: 06/18/2018 2 VIEWS CHEST INDICATION: Respiratory distress. COMPARISON: 03/22/2018. FINDINGS: Cardiomediastinal silhouette and pulmonary vessels within normal limits. There is at least moderate right pleural effusion with right sided opacity. These findings are simila r to the previous exam. No right pneumothorax. Left lung shows no consolidation, pneumothorax or pleu ral effusion. No discrete nodules. Upper abdomen is unremarkable. No acute bony abnormality. IMPRESSION: 1. Persistent at least moderate size right pleural effusion. The right lower lung field does show inc reased hazy opacity which is similar and may represent atelectasis or infiltrate. The left lung is c lear. Report Dictated By: Colten Recinos at 06/18/2018 4:42 PM Report E-Signed By: Colten Recinos at 06/18/2018 4:45 PM WSN:[email or web address]
--- NOTE | 2018-06-18 18:30 | EKG ---
FACILITY: [facility] - [place] PATIENT NAME: LEW TUCKER : [id number] MR: [id number] V: [id number] EXAM DATE: ORDERING PHYSICIAN: JULIA WRIGHT TECHNOLOGIST: LOC Omalley Reason : SOB Blood Pressure : / mmHG Vent. Rate : 077 BPM Atrial Rate : 077 BPM P-R Int : 104 ms QRS Dur : 082 ms QT Int : 468 ms P-R-T Axes : 000 084 160 degrees QTc Int : 529 ms Sinus rhythm with short VA ST and T wave abnormality, consider anterolateral ischemia Prolonged QT Abnormal ECG Confirmed by YUSRA BOWLES ([id number]) on 06/19/2018 6:37:33 AM Referred By: KYLE Confirmed By:YUSRA BOWLES
--- NOTE | 2018-06-18 18:51 | RADIOLOGY IMAGING REPORT ---
[place] [facility] [place] NAME: Gricelda Victor : 1965 MR: [id number] V: [id number] EXAM DATE: ORDERING PHYSICIAN: JULIA WRIGHT TECHNOLOGIST: Location: [facility] Patient: Gricelda Victor : 1965 Visit/Account:[id number] Date of Sevice: 06/18/2018 CHEST PA AND LAT COMPARISONS: 2 view chest dated June 18, 2018 ADDITIONAL PERTINENT HISTORY: Post thoracentesis. Patient is a smoker. FINDINGS: Cardiomediastinal silhouette: Negative. Pulmonary vasculature: Negative. Lung godfrey: Patchy opacification at the right lung base. This likely represents atelectatic change. Pleural spaces: Interval decrease in size of a right-sided pleural effusion which is now small to mod erate in size. Osseous structures: Negative. Surrounding soft tissues: Negative. IMPRESSION: 1. Interval decrease in size of a right-sided pleural effusion with improved but persistent overlying atelectatic change. 2. No new findings from previous exam. Report Dictated By: Gato Morillo MD at 06/18/2018 6:45 PM Report E-Signed By: Gato Morillo MD at 06/18/2018 6:46 PM WSN:[id number]
[2018-06-18 18:53] LABS: PLATELET COUNT, AUTOMATED 164 K/uL (150-450)
[2018-06-18] MEDS ORDERED: ONDANSETRON 4 MG TAB PO ONE (20:35)
[2018-06-18 20:40] VITALS: BP 101/75
== END 2018-06-18 20:42 | disposition home or self-care (01) ==
LOC: ER 16:02
DX: J90 Pleural effusion, not elsewhere classified (principal); J45.909 Unspecified asthma, uncomplicated; F17.210 Nicotine dependence, cigarettes, uncomplicated
CPT/HCPCS: 32555; 36415; 49083; 71046; 82803; 83880; 84484; 85025; 85610; 85730; 93005; 94640; 96374; 96375; 99284; A7048; J1170; J2060; J7620; S0119; 82040; 82247; 82310; 82374; 82435; 82565; 82947; 84075; 84132; 84155; 84295; 84450; 84460; 84520

== ENCOUNTER → 2018-07-07 | Outpatient (CLI) | payer MEDICAID ==
[2017-10-21 13:57] VITALS: BMI 33.6
[~2018-07-07] MED LIST changes: +ESCI10TA8 PO; +SPIR100T33 PO
[2018-07-07 13:54] LABS: PLATELET COUNT, AUTOMATED 166 K/uL (150-450)
[2018-07-07 14:04] LABS: LDL CHOLESTEROL 59 mg/dl
--- NOTE | 2018-07-07 14:12 | RADIOLOGY IMAGING REPORT ---
FACILITY: [facility] PATIENT NAME: Gricelda Victor : 1965 MR: [id number] V: [id number] EXAM DATE: ORDERING PHYSICIAN: MONICA WASHBURN TECHNOLOGIST: Location: [facility] - [place] Patient: Gricelda Victor : 1965 Visit/Account:[id number] Date of Sevice: 07/07/2018 Technique: CHEST PA AND LAT HISTORY: Pleural effusion, ascites, cirrhosis Comparison studies: Chest radiographs June 15, 2018 FINDINGS: Noted is a large right-sided pleural effusion. There is subtotal atelectasis of the right lower and midlung as well as linear atelectasis of the right upper lung. The left lung is clear. Im aged portions of the cardiac silhouette are unchanged. IMPRESSION: 1. Large right-sided pleural effusion with associated passive atelectasis as described above. Report Dictated By: Pratik Gonzalez DO at 07/07/2018 2:05 PM Report E-Signed By: Pratik Gonzalez DO at 07/07/2018 2:09 PM WSN:[id number]
== END ==
LOC: LAB 13:29
PROVIDERS: ATTEND Internal Medicine
DX: J90 Pleural effusion, not elsewhere classified (principal); E11.9 Type 2 diabetes mellitus without complications; E78.5 Hyperlipidemia, unspecified; R18.8 Other ascites; K74.60 Unspecified cirrhosis of liver
CPT/HCPCS: 36415; 71046; 81001; 82040; 82247; 82310; 82374; 82435; 82465; 82565; 82947; 83036; 83615; 83718; 84075; 84132; 84155; 84295; 84443; 84450; 84460; 84478; 84520; 85025

== ENCOUNTER 2018-07-12 14:21 | Outpatient (RCR) | payer MEDICAID ==
[2017-10-21 13:57] VITALS: BMI 33.6
[2018-07-12 13:30] LABS: INR 1.22
[~2018-07-12 14:21] MED LIST changes: +ASPI-1471 PO; -METF-421 PO; +METF-452 PO
[2018-07-12] MEDS ORDERED: DIAZ-308 PO (16:54)
[2018-07-13] MEDS ORDERED: SIMV-54 PO (09:58)
--- NOTE | 2018-07-13 14:01 | RADIOLOGY IMAGING REPORT ---
FACILITY: [facility] - [place] PATIENT NAME: Gricelda Victor : 1965 MR: [id number] V: [id number] EXAM DATE: ORDERING PHYSICIAN: MONICA WASHBURN TECHNOLOGIST: Location: Patient: Gricelda Victor : 1965 Visit/Account:[id number] Date of Sevice: 07/13/2018 Exam type: CHEST SPECIAL VIEW History: Right pleural effusion Comparison: July 07, 2018. Findings: Large right-sided pleural effusion appears unchanged. Atelectasis in the right mid to lower lung fie ld again seen. The left lung appears clear. There is no evidence of mediastinal shift. No evidence of a pneumothorax. The cardiac silhouette is normal. IMPRESSION: 1. Large right pleural effusion and atelectasis in right mid to lower lung field appear relatively un changed Report Dictated By: Hilda Dash MD at 07/13/2018 1:54 PM Report E-Signed By: Hilda Dash MD at 07/13/2018 1:56 PM WSN:[email or web address]
--- NOTE | 2018-07-13 16:28 | RADIOLOGY IMAGING REPORT ---
FACILITY: [facility] PATIENT NAME: Gricelda Victor : 1965 MR: [id number] V: [id number] EXAM DATE: ORDERING PHYSICIAN: MONICA WASHBURN TECHNOLOGIST: Location: [facility] Patient: Gricelda Victor : 1965 Visit/Account:[id number] Date of Sevice: 07/13/2018 Exam type: THORACENTESIS History: Large right pleural effusion Comparison: None. Findings: Informed consent was obtained. A large right pleural effusion was demonstrated sonographically. The patient's posterior right thorax was prepped and draped usual sterile fashion. Local anesthesia was administered with 1% lidocaine. Despite two separate attempts at providing local anesthesia this pa tient was screaming and thrashing about during an attempted thoracentesis. The patient was prescribe d Valium prior to the procedure by her healthcare provider. It was elected at this time to not proce ed with the procedure and referred the patient to general surgery for pleural catheter placement IMPRESSION: 1. As above Report Dictated By: Hilda Dash MD at 07/13/2018 4:20 PM Report E-Signed By: Hilda Dash MD at 07/13/2018 4:24 PM ALEXIAN:LANDON
[2018-07-14] MEDS ORDERED: SPIR100T30 PO ×2 (11:07→11:13)
[2018-07-14] MEDS ORDERED: LEVI SUBQ ×2 (11:07→11:13)
== END 2018-07-13 18:00 | disposition home or self-care (01) ==
LOC: US 14:21
PROVIDERS: ATTEND Internal Medicine
DX: R18.8 Other ascites (principal); K74.60 Unspecified cirrhosis of liver; J90 Pleural effusion, not elsewhere classified
CPT/HCPCS: 32555; 36415; 71046; 85610; A7048; 19285

== ENCOUNTER 2018-07-15 01:44 | Day surgery (SDC) | payer MEDICAID ==
[2017-10-21 13:57] VITALS: Ht 157.5 cm; Wt 76.7 kg
[~2018-07-15] VITALS: Ht 157.5 cm; Wt 76.7 kg
[~2018-07-15 01:44] MED LIST changes: +DIAZ-308 PO; +SPIR100T30 PO
[2018-07-15 07:27] VITALS: BP 115/75
[2018-07-15] MEDS ORDERED: LIDOCAINE/SOD BICARB 8.4% SYR ID ONE (07:30)
[2018-07-15] MEDS ORDERED: NORMOSOL R SOLN(*) 1000 ML BAG 1,000 ML IV PRN (07:30)
[2018-07-15] MEDS ORDERED: fentaNYL CITR 100 MCG/2 ML AMP ONE (07:41)
[2018-07-15] MEDS ORDERED: MIDAZOLAM 2 MG/2 ML VIAL ONE (07:41)
[2018-07-15 09:16] VITALS: BP 112/73
[2018-07-15 09:45] VITALS: BP 104/75
[2018-07-15 10:19] VITALS: BP 102/89
[2018-07-15 10:20] VITALS: BP 103/78
[2018-08-01] MEDS ORDERED: TRAM-420 PO (15:27)
[2018-08-04] MEDS ORDERED: ESCI20TA8 PO (11:31)
[2018-08-04] MEDS ORDERED: FLU60SYR36 IM (11:37)
[2018-08-04] MEDS ORDERED: PNEU0.5D3 IM (11:37)
== END 2018-07-15 10:42 | disposition home or self-care (01) ==
LOC: OR 01:44
PROVIDERS: ATTEND Internal Medicine
DX: J90 Pleural effusion, not elsewhere classified (principal); K74.60 Unspecified cirrhosis of liver; R18.8 Other ascites; E11.9 Type 2 diabetes mellitus without complications
CPT/HCPCS: 32555; 36416; 71046; 82945; 82948; 83986; 84157; 87071; 87205; 89050; 99152; A7048; J2250; J3010

== ENCOUNTER → 2018-08-04 | Outpatient (CLI) | payer MEDICAID ==
[2017-10-21 13:57] VITALS: BMI 33.6
[~2018-08-04] MED LIST changes: +ESCI20TA8 PO; +FLU60SYR36 IM; +PNEU0.5D3 IM
[2018-08-04 11:54] LABS: PLATELET COUNT, AUTOMATED 171 K/uL (150-450)
== END ==
LOC: LAB 11:37
PROVIDERS: ATTEND Internal Medicine
DX: J90 Pleural effusion, not elsewhere classified (principal); R18.8 Other ascites; K74.60 Unspecified cirrhosis of liver
CPT/HCPCS: 36415; 82040; 82247; 82310; 82374; 82435; 82565; 82947; 84075; 84132; 84155; 84295; 84450; 84460; 84520; 85025

== ENCOUNTER 2018-08-05 06:57 | Outpatient (RCR) | payer MEDICAID ==
[2017-10-21 13:57] VITALS: BMI 33.6
[~2018-08-05 06:57] MED LIST changes: -HYDR-4305 PO; -HYDR-4309 PO; +HYDR-627 PO; +HYDR-653 PO
== END 2018-08-31 10:17 | disposition home or self-care (01) ==
LOC: ONC 06:57
PROVIDERS: ATTEND Internal Medicine Hematology
DX: R97.1 Elevated cancer antigen 125 [CA 125] (principal)

== ENCOUNTER → 2018-11-11 | Outpatient (CLI) | payer MEDICAID ==
[2017-10-21 13:57] VITALS: BMI 33.6
[~2018-11-11] MED LIST changes: -HYDR20TA17 PO; +HYDR20TA8 PO
[2018-11-11 11:45] LABS: PLATELET COUNT, AUTOMATED 174 K/uL (150-450)
--- NOTE | 2018-11-11 12:57 | RADIOLOGY IMAGING REPORT ---
FACILITY: [facility] [place] PATIENT NAME: Gricelda Victor : 1965 MR: [id number] V: [id number] EXAM DATE: ORDERING PHYSICIAN: MONICA WASHBURN TECHNOLOGIST: Location: [facility] Patient: Gricelda Victor : 1965 Visit/Account:[id number] Date of Sevice: 11/11/2018 Exam type: CHEST PA LAT History: pleural effusion, history of smoking and asthma Comparison: July 15, 2018. Findings: The lungs are free of acute effusions, infiltrates or edema. The cardiac silhouette is normal in siz e. The trachea is midline. IMPRESSION: 1. No acute cardiopulmonary process is seen Report Dictated By: Hilda Dash MD at 11/11/2018 12:50 PM Report E-Signed By: Hilda Dash MD at 11/11/2018 12:52 PM WSN:[email or web address]
== END ==
LOC: LAB 11:10
PROVIDERS: ATTEND Internal Medicine
DX: R18.8 Other ascites (principal); K74.60 Unspecified cirrhosis of liver; E11.9 Type 2 diabetes mellitus without complications; E78.5 Hyperlipidemia, unspecified; R97.1 Elevated cancer antigen 125 [CA 125]; J90 Pleural effusion, not elsewhere classified
CPT/HCPCS: 36415; 71046; 81001; 82040; 82043; 82247; 82310; 82374; 82435; 82465; 82565; 82947; 83036; 83718; 84075; 84132; 84155; 84295; 84443; 84450; 84460; 84478; 84520; 85025; 86304

== ENCOUNTER → 2018-11-23 | Outpatient (CLI) | payer MEDICAID ==
[2017-10-21 13:57] VITALS: BMI 33.6
== END ==
LOC: LAB 15:07
PROVIDERS: ATTEND Internal Medicine
DX: R31.9 Hematuria, unspecified (principal)
CPT/HCPCS: 81001

== ENCOUNTER 2019-02-10 16:55 | Emergency (ER) | payer MEDICAID ==
[2017-10-21 13:57] VITALS: Wt 76.7 kg
[~2019-02-10 16:55] MED LIST changes: +ROSU20TA24 PO
--- NOTE | 2019-02-10 17:14 | ER Report ---
History and Physical Time Seen By MD: 17:13 Hx. of Stated Complaint: intermittent pain from vagina to umbilicus HPI/ROS CHIEF COMPLAINT: Possible UTI HISTORY OF PRESENT ILLNESS: Is a 54-year-old female presents to emergency department for concerns or UTI. Patient states that over the last couple days she's had increased suprapubic pain, was concerned that she has a urinary tract infection as she's had similar symptoms with UTIs in the past. She states that she's had clear vaginal discharge, no other concerning findings. No history of STDs or current sexual contact. No fevers. No chills. No nausea or vomiting. REVIEW OF SYSTEMS: Respiratory: No cough, no dyspnea. Cardiovascular: No chest pain, no palpitations. Gastrointestinal: No vomiting, no abdominal pain. Genitourinary: As above. Musculoskeletal: No back pain. Allergies: Coded Allergies: Penicillins (Verified Allergy, Intermediate, ITCHING, 06/18/18) levofloxacin (Verified Allergy, Intermediate, HIVES, 06/18/18) Home Meds Active Scripts Nitrofurantoin Monohyd/M-Cryst (MACROBID 100 MG CAPSULE) 100 Mg Capsule, 100 MG PO BID for 5 Days, #10 CAPSULE 0 Refills Prov:RAF VELASQUEZ SWIMMING POOL SERVICEPERSON-BC 02/10/19 Rosuvastatin Calcium (CRESTOR) 20 Mg Tablet, 20 MG PO QDAY, #30 TAB 6 Refills Prov:MONICA TOMAS MD 02/08/19 Insulin Detemir (LEVEMIR) 100 Unit/Ml Injs, 17 UNIT SUBQ QHS, #5 VIAL 6 Refills Add 2 units every 3 days until fasting blood sugars are less than 120 Maximum dose 30 units per day Prov:MONICA TOMAS MD 02/08/19 Tramadol Hcl (TRAMADOL HCL) 50 Mg Tablet, 1 TAB PO TID PRN for pain, #90 TAB 3 Refills Prov:MONICA TOMAS MD 02/08/19 Spironolactone (ALDACTONE) 100 Mg Tablet, 100 MG PO QDAY, #90 TAB 1 Refill Prov:MONICA TOMAS MD 01/31/19 Gabapentin (GABAPENTIN) 100 Mg Capsule, 1-3 CAP PO BID, #90 CAPSULE 3 Refills 1 twica a day x 3 days than 2 twice a day x 3 days than 3 twice a day Prov:MONICA TOMAS MD 11/11/18 Cyclobenzaprine Hcl (CYCLOBENZAPRINE HCL) 10 Mg Tablet, 1 TAB PO TID PRN for ain, #90 TAB 2 Refills Prov:MONICA TOMAS MD 11/11/18 Levothyroxine Sodium (LEVOTHYROXINE SODIUM) 75 Mcg Tablet, 1 TAB PO QDAY, #30 TAB 5 Refills Prov:MONICA TOMAS MD 07/11/18 Metformin Hcl (METFORMIN HCL ER) 500 Mg Tab.er.24, 2 TAB PO BID, #60 TAB 5 Refills Prov:MONICA TOMAS MD 07/07/18 Albuterol Sulfate 90 Mcg/Act (PROAIR HFA 90 MCG/ACT) 8.5 Gm Hfa.aer.ad, 2 PUFF IH Q4-6H, #1 INHALER 5 Refills Prov:MONICA TOMAS MD 07/07/18 Reported Medications [magnesium supplement] No Conflict Check 02/10/19 Milk Thistle Seed Extract (MILK THISTLE) 140 Mg Capsule, 140 MG PO, CAPSULE 02/10/19 Aspirin (ASPIRIN) 81 Mg Tab.chew, 81 MG PO QDAY, TAB.CHEW 02/10/19 Discontinued Scripts Escitalopram Oxalate (ESCITALOPRAM OXALATE) 20 Mg Tablet, 20 MG PO QDAY, #30 TAB 4 Refills Prov:MONICA TOMAS MD 08/04/18 Omeprazole (OMEPRAZOLE) 20 Mg Tablet.dr, 20 MG PO QDAY, #30 TAB 5 Refills Prov:MONICA TOMAS MD 07/07/18 Simvastatin (SIMVASTATIN) 40 Mg Tablet, 1 TAB PO DAILY, #90 TAB 1 Refill Prov:MONICA TOMAS MD 01/31/19 Past Medical/Surgical History Patient has a past medical and surgical history of pituitary tumor, vertigo, headaches, high cholesterol, sleep apnea, asthma, liver disease, GERD, ascites, cirrhosis of the liver, hernia, urinary tract infections, menopause, chronic low back pain, bilateral knee pain, arthritis, wears glasses, type II diabetes, hypothyroidism, depression, suicide attempt, appendectomy. Reviewed Nurses Notes: Yes Hx Smoking: Yes (1 pack every 4-5 days 25 YRS) Smoking Status: Current: Every Day Smoker Exposure to Second Hand Smoke?: Yes Hx Substance Use Disorder: No Hx Alcohol Use: No Constitutional Vital Sign - Last 24 Hours 02/10/19 02/10/19 02/10/19 02/10/19 17:01 17:03 17:10 17:25 Temp 98.2 Pulse 69 67 71 Resp 20 B/P (MAP) 127/82 127/82 (97) Pulse Ox 91 96 93 O2 Delivery Room Air 02/10/19 02/10/19 02/10/19 02/10/19 17:30 17:40 17:55 18:00 Pulse 66 68 B/P (MAP) 114/77 (89) 111/73 (86) Pulse Ox 91 92 02/10/19 18:10 Pulse 67 Pulse Ox 92 Physical Exam General Appearance: The patient is alert, has no immediate need for airway protection and no current signs of toxicity. Eyes: Pupils equal and round no injection. Respiratory: Chest is non tender, lungs are clear to auscultation. Cardiac: regular rate and rhythm. Gastrointestinal: Abdomen is soft and non tender, no masses, bowel sounds normal. Musculoskeletal: Neck: Neck is supple and non tender. Extremities have full range of motion and are non tender. Skin: No rashes or lesions. DIFFERENTIAL DIAGNOSIS: After history and physical exam differential diagnosis was considered for urinary tract infection, vaginosis, six-week transmitted i nfection. Medical Decision Making Data Points Laboratory Hematology Test 02/10/19 17:00 Urine Color Yellow Urine Clarity Slightly-cloudy Urine pH 5.0 pH (4.8-9.5) Urine Specific [place] 1.013 Urine Protein Negative mg/dL (NEGATIVE) Urine Glucose (UA) Negative mg/dL (NEGATIVE) Urine Ketones Negative mg/dL (NEGATIVE) Urine Blood Small (NEGATIVE) Urine Nitrite Negative (NEGATIVE) Urine Bilirubin Negative (NEGATIVE) Urine Urobilinogen 2.0 mg/dL (0.2-1.9) Urine Leukocyte Esterase Moderate (NEGATIVE) Urine RBC 4 /HPF (0-2/HPF) Urine WBC 55 /HPF (0-5/HPF) Urine Squamous Epithelial Cells Many /LPF (</=FEW) Urine Bacteria Few /HPF (NONE-FEW) Urine Mucus None /HPF (NONE-FEW) Chemistry Test 02/10/19 17:00 Urine Color Yellow Urine Clarity Slightly-cloudy Urine pH 5.0 pH (4.8-9.5) Urine Specific [place] 1.013 Urine Protein Negative mg/dL (NEGATIVE) Urine Glucose (UA) Negative mg/dL (NEGATIVE) Urine Ketones Negative mg/dL (NEGATIVE) Urine Blood Small (NEGATIVE) Urine Nitrite Negative (NEGATIVE) Urine Bilirubin Negative (NEGATIVE) Urine Urobilinogen 2.0 mg/dL (0.2-1.9) Urine Leukocyte Esterase Moderate (NEGATIVE) Urine RBC 4 /HPF (0-2/HPF) Urine WBC 55 /HPF (0-5/HPF) Urine Squamous Epithelial Cells Many /LPF (</=FEW) Urine Bacteria Few /HPF (NONE-FEW) Urine Mucus None /HPF (NONE-FEW) Urinalysis Test 02/10/19 17:00 Urine Color Yellow Urine Clarity Slightly-cloudy Urine pH 5.0 pH (4.8-9.5) Urine Specific [place] 1.013 Urine Protein Negative mg/dL (NEGATIVE) Urine Glucose (UA) Negative mg/dL (NEGATIVE) Urine Ketones Negative mg/dL (NEGATIVE) Urine Blood Small (NEGATIVE) Urine Nitrite Negative (NEGATIVE) Urine Bilirubin Negative (NEGATIVE) Urine Urobilinogen 2.0 mg/dL (0.2-1.9) Urine Leukocyte Esterase Moderate (NEGATIVE) Urine RBC 4 /HPF (0-2/HPF) Urine WBC 55 /HPF (0-5/HPF) Urine Squamous Epithelial Cells Many /LPF (</=FEW) Urine Bacteria Few /HPF (NONE-FEW) Urine Mucus None /HPF (NONE-FEW) ED Course/Re-evaluation ED Course The patient was admitted to room. A history of physical were obtained. Differential diagnoses were considered. UA showing a mild urinary tract infection, I did send the urine off for culture. Patient was started on Macrobid. Patient was instructed follow-up with her primary care provider whom she saw 2 days ago. She had no other questions or concerns at this time and discharged home. Decision to Disposition Date: Feb 10, 2019 Decision to Disposition Time: 18:11 Depart Departure Latest Vital Signs Vital Signs Date Time Temp Pulse Resp B/P (MAP) Pulse Ox O2 Delivery O2 Flow Rate FiO2 02/10/19 18:10 67 92 02/10/19 18:00 111/73 (86) 02/10/19 17:01 98.2 20 Room Air Impression: Primary Impression: UTI (urinary tract infection) Condition: Improved Disposition: HOME OR SELF-CARE Referrals: MONICA TOMAS MD (PCP) 1 Week New Scripts Nitrofurantoin Monohyd/M-Cryst (MACROBID 100 MG CAPSULE) 100 Mg Capsule 100 MG PO BID for 5 Days, #10 CAPSULE 0 Refills Prov: RAF VELASQUEZ-ALFIE 02/10/19 Patient Instructions: Urinary Tract Infection in Women (ED) Additional Instructions: Take the antibiotics as prescribed. Get plenty of rest. Drink plenty of water. Follow up with Dr. Tomas next week for reevaluation. Return to the ED for any other concerns or worsening symptoms. Problem Qualifiers Primary Impression: UTI (urinary tract infection) Urinary tract infection type: acute cystitis Hematuria presence: with hematuria Qualified Codes: N30.01 - Acute cystitis with hematuria RAF VELASQUEZP-BC Feb 10, 2019 17:13
[2019-02-10] MEDS ORDERED: MAGNESIUM SUPPLEMENT (17:15)
[2019-02-10] MEDS ORDERED: MILK1CAP4 PO (17:15)
[2019-02-10] MEDS ORDERED: ASPI81TA94 PO (17:15)
[2019-02-10 18:00] VITALS: BP 111/73
[2019-02-10] MEDS ORDERED: NITR-105 PO (18:12)
== END 2019-02-10 18:20 | disposition home or self-care (01) ==
LOC: ER 17:03
DX: N30.01 Acute cystitis with hematuria (principal); E11.9 Type 2 diabetes mellitus without complications; F17.200 Nicotine dependence, unspecified, uncomplicated
CPT/HCPCS: 81001; 87088; 87186; 99282

== ENCOUNTER 2019-03-31 17:10 | Emergency (ER) | payer MEDICAID ==
[2017-10-21 13:57] VITALS: Wt 76.7 kg
[~2019-03-31 17:10] MED LIST changes: +ASPI81TA94 PO; +CIPR-344 PO; -CYAN500T38 PO; +CYAN500T39 PO; +MAGNESIUM SUPPLEMENT; +MILK1CAP4 PO; +NITR-105 PO; -OMEP-125 PO; +OMEP-126 PO
--- NOTE | 2019-03-31 17:25 | ER Report ---
History and Physical Time Seen By MD: 17:24 Hx. of Stated Complaint: VAGINAL PAIN X 3 MONTHS HPI/ROS Pain in vagina for months. No dysuria. No discharge. Has not had a pelvic exam in years. No vaginal bleeding. Not sexually active. No abdominal pain. Remainder of the 14 system rev: Yes Allergies: Coded Allergies: Penicillins (Verified Allergy, Intermediate, ITCHING, 03/31/19) levofloxacin (Verified Allergy, Intermediate, HIVES, 03/31/19) Home Meds Active Scripts Metronidazole (FLAGYL) 500 Mg Tablet, 500 MG PO BID for 10 Days, #20 TAB Prov:JOSE YANG MD 03/31/19 Rosuvastatin Calcium (CRESTOR) 20 Mg Tablet, 20 MG PO QDAY, #30 TAB 6 Refills Prov:MONICA WASHBURN MD 02/08/19 Insulin Detemir (LEVEMIR) 100 Unit/Ml Injs, 17 UNIT SUBQ QHS, #5 VIAL 6 Refills Add 2 units every 3 days until fasting blood sugars are less than 120 Maximum dose 30 units per day Prov:MONICA WASHBURN MD 02/08/19 Tramadol Hcl (TRAMADOL HCL) 50 Mg Tablet, 1 TAB PO TID PRN for pain, #90 TAB 3 Refills Prov:MONICA WASHBURN MD 02/08/19 Spironolactone (ALDACTONE) 100 Mg Tablet, 100 MG PO QDAY, #90 TAB 1 Refill Prov:MONICA WASHBURN MD 01/31/19 Gabapentin (GABAPENTIN) 100 Mg Capsule, 1-3 CAP PO BID, #90 CAPSULE 3 Refills 1 twica a day x 3 days than 2 twice a day x 3 days than 3 twice a day Prov:MONICA WASHBURN MD 11/11/18 Cyclobenzaprine Hcl (CYCLOBENZAPRINE HCL) 10 Mg Tablet, 1 TAB PO TID PRN for ain, #90 TAB 2 Refills Prov:MONICA WASHBURN MD 11/11/18 Levothyroxine Sodium (LEVOTHYROXINE SODIUM) 75 Mcg Tablet, 1 TAB PO QDAY, #30 TAB 5 Refills Prov:MONICA WASHBURN MD 07/11/18 Metformin Hcl (METFORMIN HCL ER) 500 Mg Tab.er.24, 2 TAB PO BID, #60 TAB 5 Refills Prov:MONICA WASHBURN MD 07/07/18 Albuterol Sulfate 90 Mcg/Act (PROAIR HFA 90 MCG/ACT) 8.5 Gm Hfa.aer.ad, 2 PUFF IH Q4-6H, #1 INHALER 5 Refills Prov:MONICA WASHBURN MD 07/07/18 Reported Medications [magnesium supplement] No Conflict Check 02/10/19 Milk Thistle Seed Extract (MILK THISTLE) 140 Mg Capsule, 140 MG PO, CAPSULE 02/10/19 Aspirin (ASPIRIN) 81 Mg Tab.chew, 81 MG PO QDAY, TAB.CHEW 02/10/19 Discontinued Scripts Ciprofloxacin Hcl 500 Mg Tab (CIPRO 500 MG TAB) 500 Mg Tablet, 250 MG PO BID for 5 Days, #10 TAB Patient to take Cipro 250mg twice a day for 5 days Prov:MONICA WASHBURN MD 02/14/19 Nitrofurantoin Monohyd/M-Cryst (MACROBID 100 MG CAPSULE) 100 Mg Capsule, 100 MG PO BID for 5 Days, #10 CAPSULE 0 Refills Prov:RAF VELASQUEZ STEEL LAYER-BC 02/10/19 Reviewed Nurses Notes: Yes Old Medical Records Reviewed: Yes Hx Smoking: Yes (1 pack every 4-5 days 25 YRS) Smoking Status: Current: Every Day Smoker Exposure to Second Hand Smoke?: Yes Hx Substance Use Disorder: No Hx Alcohol Use: No Constitutional Vital Sign - Last 24 Hours 03/31/19 03/31/19 03/31/19 17:17 17:30 18:00 Temp 98.5 Pulse 69 65 62 Resp 20 B/P (MAP) 113/75 120/98 (105) 101/54 (70) Pulse Ox 93 96 91 O2 Delivery Room Air Physical Exam General Appearance: The patient is alert, has no immediate need for airway protection and no current signs of toxicity. Eyes: Pupils equal and round no injection. Respiratory: Chest is non tender, lungs are clear to auscultation. Cardiac: regular rate and rhythm Gastrointestinal: Abdomen is soft and non tender, no masses, bowel sounds normal. Pelvic: Normal external exam, no blood noted, malodorous discharge Skin: No rashes or lesions. DIFFERENTIAL DIAGNOSIS: After history and physical exam differential diagnosis was considered for Medical Decision Making Data Points Laboratory Hematology Test 03/31/19 17:17 04/01/19 00:00 Urine Color Yellow Urine Clarity Clear Urine pH 5.0 pH (4.8-9.5) Urine Specific [place] 1.015 Urine Protein Negative mg/dL (NEGATIVE) Urine Glucose (UA) Negative mg/dL (NEGATIVE) Urine Ketones Negative mg/dL (NEGATIVE) Urine Blood Negative (NEGATIVE) Urine Nitrite Negative (NEGATIVE) Urine Bilirubin Negative (NEGATIVE) Urine Urobilinogen 4.0 mg/dL (0.2-1.9) Urine Leukocyte Esterase Small (NEGATIVE) Urine RBC 1 /HPF (0-2/HPF) Urine WBC 10 /HPF (0-5/HPF) Urine Squamous Epithelial Cells Moderate /LPF (</=FEW) Urine Bacteria Few /HPF (NONE-FEW) Urine Hyaline Casts Few /LPF (NONE-FEW) Urine Mucus None /HPF (NONE-FEW) Chlamydia trachomatis Amplified DNA Negative (Negative) Neisseria gonorrhoeae Amplified DNA Negative (Negative) Body Source Not provided Chemistry Test 03/31/19 17:17 04/01/19 00:00 Urine Color Yellow Urine Clarity Clear Urine pH 5.0 pH (4.8-9.5) Urine Specific [place] 1.015 Urine Protein Negative mg/dL (NEGATIVE) Urine Glucose (UA) Negative mg/dL (NEGATIVE) Urine Ketones Negative mg/dL (NEGATIVE) Urine Blood Negative (NEGATIVE) Urine Nitrite Negative (NEGATIVE) Urine Bilirubin Negative (NEGATIVE) Urine Urobilinogen 4.0 mg/dL (0.2-1.9) Urine Leukocyte Esterase Small (NEGATIVE) Urine RBC 1 /HPF (0-2/HPF) Urine WBC 10 /HPF (0-5/HPF) Urine Squamous Epithelial Cells Moderate /LPF (</=FEW) Urine Bacteria Few /HPF (NONE-FEW) Urine Hyaline Casts Few /LPF (NONE-FEW) Urine Mucus None /HPF (NONE-FEW) Chlamydia trachomatis Amplified DNA Negative (Negative) Neisseria gonorrhoeae Amplified DNA Negative (Negative) Body Source Not provided Urinalysis Test 03/31/19 17:17 Urine Color Yellow Urine Clarity Clear Urine pH 5.0 pH (4.8-9.5) Urine Specific [place] 1.015 Urine Protein Negative mg/dL (NEGATIVE) Urine Glucose (UA) Negative mg/dL (NEGATIVE) Urine Ketones Negative mg/dL (NEGATIVE) Urine Blood Negative (NEGATIVE) Urine Nitrite Negative (NEGATIVE) Urine Bilirubin Negative (NEGATIVE) Urine Urobilinogen 4.0 mg/dL (0.2-1.9) Urine Leukocyte Esterase Small (NEGATIVE) Urine RBC 1 /HPF (0-2/HPF) Urine WBC 10 /HPF (0-5/HPF) Urine Squamous Epithelial Cells Moderate /LPF (</=FEW) Urine Bacteria Few /HPF (NONE-FEW) Urine Hyaline Casts Few /LPF (NONE-FEW) Urine Mucus None /HPF (NONE-FEW) Microbiology Microbiology Date/Time Source Procedure Growth Status 03/31/19 17:34 Cervical Wet Prep - Final Complete 03/31/19 17:17 Clean Catch Midstream Ur Urine Culture - Final Complete ED Course/Re-evaluation ED Course No post-menapausal bleeding. No dysuria or back pain. G/c and wet prep sent. Not sexually active. Will treat with Flagyl for possible BV until cultures return. Will follow up with PCM. Decision to Disposition Date: March 31, 2019 Decision to Disposition Time: 18:01 Depart Departure Latest Vital Signs Vital Signs Date Time Temp Pulse Resp B/P (MAP) Pulse Ox O2 Delivery O2 Flow Rate FiO2 03/31/19 18:00 62 101/54 (70) 91 03/31/19 17:17 98.5 20 Room Air Impression: Primary Impression: Bacterial vaginosis Condition: Improved Disposition: HOME OR SELF-CARE Referrals: MONICA WASHBURN MD (PCP) New Scripts Metronidazole (FLAGYL) 500 Mg Tablet 500 MG PO BID for 10 Days, #20 TAB Prov: JOSE YANG MD 03/31/19 Patient Instructions: Bacterial Vaginosis (ED) JOSE YANG MD March 31, 2019 17:24
[2019-03-31 18:00] VITALS: BP 101/54
[2019-03-31] MEDS ORDERED: METR-1 PO (18:03)
== END 2019-03-31 18:10 | disposition home or self-care (01) ==
LOC: ER 17:42
DX: N76.0 Acute vaginitis (principal); F17.210 Nicotine dependence, cigarettes, uncomplicated; Z79.82 Long term (current) use of aspirin; Z79.899 Other long term (current) drug therapy
CPT/HCPCS: 81001; 87081; 87088; 87210; 87491; 87591; 99283

== ENCOUNTER → 2019-05-24 | Outpatient (CLI) | payer MEDICAID ==
[2017-10-21 13:57] VITALS: BMI 33.6
[~2019-05-24] MED LIST changes: +GABA-551 PO; +METR-1 PO
[2019-05-24 17:10] LABS: PLATELET COUNT, AUTOMATED 199 K/uL (150-450)
== END ==
LOC: LAB 16:31
PROVIDERS: ATTEND Internal Medicine
DX: D64.9 Anemia, unspecified (principal); E78.5 Hyperlipidemia, unspecified; E11.9 Type 2 diabetes mellitus without complications; K74.60 Unspecified cirrhosis of liver; R97.1 Elevated cancer antigen 125 [CA 125]
CPT/HCPCS: 36415; 82607; 82728; 82746; 83540; 83550; 85025; 86304

== ENCOUNTER → 2019-06-06 | Outpatient (CLI) | payer MEDICAID ==
[2017-10-21 13:57] VITALS: BMI 33.6
--- NOTE | 2019-06-06 15:09 | RADIOLOGY IMAGING REPORT ---
FACILITY: [facility] PATIENT NAME: Gricelda Victor : 1965 MR: [id number] V: [id number] EXAM DATE: ORDERING PHYSICIAN: MONICA WASHBURN TECHNOLOGIST: Location: [facility] [place] Patient: Gricelda Victor : 1965 Visit/Account:[id number] Date of Sevice: 06/06/2019 EXAMINATION: Abdominal ultrasound complete HISTORY: Anemia and ascites COMPARISON: CT chest seven pelvis January 13, 2018 FINDINGS: Gallbladder: Shadowing calculi within the gallbladder. Gallbladder wall is not thickened and there w as a negative Dunbar sign by technologist notation Liver: The liver is enlarged measuring 18.9 cm in length. Slightly lobular contour to the liver Common duct: Normal measuring 4.3 mm. Pancreas: Negative. Spleen: Normal in size and echogenicity measuring 10.1 cm in length. Kidneys: Normal in size and echogenicity, the right measures 11 cm in length, and the left 10.3 cm. No hydronephrosis. Upper abdominal aorta and IVC: Negative. Ascites: None. IMPRESSION: Cholelithiasis although no evidence of gallbladder wall thickening, biliary ductal dilatation or posi tive Dunbar sign Hepatomegaly with a slightly lobular contour to the liver suggesting cirrhosis No demonstration of ascites Report Dictated By: Hilda Dash MD at 06/06/2019 2:56 PM Report E-Signed By: Hilda Dash MD at 06/06/2019 3:01 PM WSN:[id number]
== END ==
LOC: US 00:48
PROVIDERS: ATTEND Internal Medicine
DX: K80.20 Calculus of gallbladder without cholecystitis without obstruction (principal); R16.0 Hepatomegaly, not elsewhere classified
CPT/HCPCS: 76700